=== PATIENT | male | born 1935 | race Caucasian/White ===

== ENCOUNTER 2018-01-21 14:08 | Inpatient (IN) ==
--- NOTE | 2018-01-21 14:18 | Emergency Department Note ---
ED Disposition Clinical Impression: HCAP (healthcare-associated pneumonia) Disposition: Admitted As Inpatient Condition on Discharge: Fair - Critical Care Critical Care Time: No Attestation: On , the high probability of a clinically significant, sudden or life threatening deterioration of the following system(s) required my full and direct attention, intervention and personal management. The time I documented below is in addition to time spent performing reported procedures but includes the following listed in this critical care notation. Medical Decision Making - Silas Inquiry Pt receiving controlled substance: No Vital Signs: 01/21/18 14:08 01/21/18 14:31 01/21/18 14:47 Temperature 98.4 F Temperature Source Temporal Artery Scan Pulse Rate 63 Pulse Rate [Left Radial] 62 61 Respiratory Rate 22 22 Blood Pressure 145/84 H Blood Pressure [Left Arm] 148/71 H 148/60 H Blood Pressure Mean [Left Arm] 96 89 Blood Pressure Source Automatic Cuff Blood Pressure Source [Left Arm] Automatic Cuff Automatic Cuff Blood Pressure Position Sitting Blood Pressure Position [Left Arm] Supine Sitting 02 Sat by Pulse Oximetry 99 94 L Oxygen Delivery Method Non-Rebreather Non-Rebreather Trach Collar/ Tube Oxygen Flow Rate (LPM) 15 15 01/21/18 15:05 01/21/18 15:29 01/21/18 15:30 Temperature 99.1 F Temperature Source Rectal Pulse Rate Pulse Rate [Left Radial] 63 61 63 Respiratory Rate Blood Pressure Blood Pressure [Left Arm] 132/89 138/60 123/62 Blood Pressure Mean [Left Arm] 103 86 82 Blood Pressure Source Blood Pressure Source [Left Arm] Automatic Cuff Automatic Cuff Automatic Cuff Blood Pressure Position Blood Pressure Position [Left Arm] Supine Supine 02 Sat by Pulse Oximetry 99 95 98 Oxygen Delivery Method Room Air Trach Mask Trach Collar/ Tube Trach Mask Oxygen Flow Rate (LPM) 60 60 01/21/18 16:07 01/21/18 16:36 01/21/18 16:50 Temperature 98.5 F Temperature Source Axillary Pulse Rate Pulse Rate [Left Radial] 68 73 84 Respiratory Rate 20 21 Blood Pressure Blood Pressure [Left Arm] 130/73 137/66 123/81 Blood Pressure Mean [Left Arm] 92 89 95 Blood Pressure Source Blood Pressure Source [Left Arm] Automatic Cuff Automatic Cuff Automatic Cuff Blood Pressure Position Blood Pressure Position [Left Arm] Supine Supine Sitting 02 Sat by Pulse Oximetry 96 98 100 Oxygen Delivery Method Trach Mask Trach Collar/ Tube Trach Mask Oxygen Flow Rate (LPM) 60 60 01/21/18 17:00 01/21/18 17:02 Temperature 99.1 F Temperature Source Rectal Pulse Rate 82 Pulse Rate [Left Radial] Respiratory Rate 20 Blood Pressure 134/61 Blood Pressure [Left Arm] Blood Pressure Mean [Left Arm] Blood Pressure Source Blood Pressure Source [Left Arm] Blood Pressure Position Blood Pressure Position [Left Arm] 02 Sat by Pulse Oximetry Oxygen Delivery Method Trach Collar/ Tube Trach Mask Oxygen Flow Rate (LPM) 8 60 - Lab Data Lab Results 01/21/18 14:29: Specimen Source Left radial, O2 % 100% nrb, ABG pH 7.43, ABG pCO2 42.2, ABG pO2 156.9 H, ABG HCO3 27.4 H, ABG Total CO2 28.7 H, ABG O2 Saturation 99, ABG Base Excess 3.1 H, [place] Test Patient unable 01/21/18 14:30: WBC 14.2 H, RBC 2.66 L, Hgb 8.0 L, Hct 25.8 L, MCV 96.8 H, MCH 30.1, MCHC 31.1 L, RDW 20.4 H, Plt Count 359, MPV 8.7, Neut % (Auto) 86.6 H, Lymph % (Auto) 6.8 L, [place] % (Auto) 5.0, Eos % (Auto) 1.3, Baso % (Auto) 0.3, Neut # (Auto) 12.3 H, Lymph # (Auto) 1.0, [place] # (Auto) 0.7, Eos # (Auto) 0.2, Baso # (Auto) 0.0, Total Counted 100, Neutrophils % (Manual) 86 H, Lymphocytes % (Manual) 9 L, Monocytes % (Manual) 3, Eosinophils % (Manual) 1, Basophils % (Manual) 1.0, Platelet Estimate Normal, Anisocytosis 2+ 01/21/18 14:30: Sodium 138, Potassium 4.8, Chloride 103, Carbon Dioxide 31, Anion Gap 8.8, BUN 45 H, Creatinine 1.67 H, Estimated Creat Clear 34, Estimated GFR 39 L, Est GFR ( Amer) 48 L, Glucose 134 H, Calcium 7.9 L, Total B ilirubin 0.2, AST 26, ALT 17, Alkaline Phosphatase 98, Troponin I < 0.02, Total Protein 6.4, Albumin 1.5 L, Globulin 4.9 H, Albumin/Globulin Ratio 0.3 L 01/21/18 14:30: Lactate 0.9 01/21/18 14:30: B-Natriuretic Peptide 1040 H Result diagrams: 01/21/18 14:30 01/21/18 14:30 Orders (Tests/Meds): ED MEDICATIONS Generic Name Dose Route Start Last Admin Trade Name Gaby PRN Reason Stop Dose Admin Acetaminophen 650 mg 01/22/18 09:00 Acetaminophen 325mg Tab PO 02/21/18 08:59 DAILY [facility] Amlodipine Besylate 10 mg 01/22/18 09:00 Norvasc 10mg Tablet PO 02/21/18 08:59 DAILY [facility] Docusate Sodium ml 01/22/18 09:00 Docusate Sod Liquid 100mg/10ml Udc PO 02/21/18 08:59 DAILY [facility] Folic Acid 1 mg 01/22/18 09:00 Folic Acid 1mg Tablet PO 02/21/18 08:59 DAILY [facility] Furosemide 20 mg 01/21/18 21:00 Lasix 20mg Tablet PO 02/20/18 20:59 BID [facility] Levofloxacin/Dextrose 750 mg in 150 mls @ 100 mls/hr 01/22/18 15:15 Levofloxacin 750mg/150ml Premix IV 02/04/18 15:14 Q24H [facility] Protocol Vancomycin HCl 1,500 mg/ 250 mls @ 125 mls/hr 01/21/18 17:09 01/21/18 17:45 Sodium Chloride IV 01/21/18 17:14 125 mls/hr ONCE ONE Administration Cefepime HCl 2 gm/ Sodium 100 mls @ 200 mls/hr 01/21/18 17:09 01/21/18 17:20 Chloride IV 02/04/18 17:08 Not Given Q12H [facility] Protocol Metoprolol Tartrate 50 mg 01/21/18 21:00 Lopressor 50mg Tablet PO 02/20/18 20:59 BID [facility] Non-Formulary Medication 1 each 01/22/18 09:00 Argin/Glut/Cahmb/Collag/Mv-Min [Son Packet] PO 02/21/18 08:59 DAILY [facility] Non-Formulary Medication 1 each 01/22/18 09:00 L.Acidoph,Paracasei, B.Lactis [Probiotic] PO 02/21/18 08:59 DAILY [facility] Non-Formulary Medication 3 mg 01/22/18 09:00 Melatonin [Melatin] PO 02/21/18 08:59 DAILY [facility] Non-Formulary Medication 15 mg 01/22/18 09:00 Multivit-Minerals/Ferrous Fum [Multivitamin Liquid] PO 02/21/18 08:59 DAILY [facility] Pantoprazole Sodium 40 mg 01/21/18 21:00 Protonix 40mg Tablet PO 02/20/18 20:59 BID [facility] Sodium Chloride 3 ml 01/21/18 17:09 Sodium Chloride 3% 15ml Neb IH 02/20/18 14:38 ONCE PRN INDUCE SPUTUM COLLECTION Discontinued Medications Generic Name Dose Route Start Last Admin Trade Name Freq PRN Reason Stop Dose Admin Carvedilol 12.5 mg 01/21/18 21:00 Coreg 12.5mg Tablet PO 02/20/18 20:59 BID [facility] Finasteride 5 mg 01/22/18 09:00 Proscar 5mg Tablet PO 02/21/18 08:59 DAILY [facility] Guaifenesin 600 mg 01/21/18 21:00 Mucinex 600mg Tablet PO 02/20/18 20:59 BID [facility] Cefepime HCl 2 gm/ Sodium 100 mls @ 200 mls/hr 01/21/18 15:07 01/21/18 15:18 Chloride IV 01/21/18 15:08 200 mls/hr ONCE ONE Administration Protocol Levofloxacin/Dextrose 750 mg in 150 mls @ 100 mls/hr 01/21/18 15:15 01/21/18 16:00 Levofloxacin 750mg/150ml Premix IV 02/04/18 15:14 100 mls/hr Q24H [facility] Administration Protocol Vancomycin HCl 1,500 mg/ 250 mls @ 125 mls/hr 01/21/18 15:15 01/21/18 18:21 Sodium Chloride IV 01/21/18 17:14 Not Given ONCE ONE Lisinopril 10 mg 01/22/18 09:00 Zestril 10mg Tablet PO 02/21/18 08:59 DAILY [facility] Miscellaneous 1 each 01/21/18 15:07 01/21/18 15:23 Vancomycin Consult Request NOTAPPLIC 01/21/18 15:08 1 each [facility] Administration Non-Formulary Medication 7.5 mg 01/22/18 09:00 Potassium [Potassium] PO 02/21/18 08:59 DAILY [facility] Sodium Chloride 3 ml 01/21/18 14:39 Sodium Chloride 3% 15ml Neb IH 02/20/18 14:38 ONCE PRN INDUCE SPUTUM COLLECTION ORDERS Category Date Time Status Nutrition Consult [CONS] Routine Cons 01/21/18 17:09 Active Blood Culture Stat Micro 01/21/18 14:27 Received Sputum Culture & Gram Stain Stat Micro 01/21/18 15:00 Ordered - Radiology Data #1 Image(s): Chest Image Reviewed: Yes I discussed the image results w/the radiologist Bilateral pneumonia, small right pleural effusion - ECG Data Tracing #1 EKG interpreted by Augusto Lisa MD: Rhythm: Atrial fibrillation Rate: 87 [place]: normal Ectopy: none Conduction: normal ST Segment Changes: none T Wave Changes: none Q Waves: none No evidence of acute ischemia or injury Baseline artifact present, but I consider the EKG adequate for accurate inter pretation. - Physician Consults Physician Consulted: [facility] Time: 15:57 Reason -: Transfer to another facilty Comment/Response: [facility] is on diversion, unable to accept patient for transfer. Discussed with family. They would prefer for him to be admitted here rather than transfer to a different facility in [place]. Additional Consult: Megan Time: 16:07 Reason -: Admission Comment/Response: Agrees to admit the patient to the hospital. We discussed the patient's clinical information, including history, exam, laboratory and radiology results and ED course. Per hospital procedure, I will write temporary bridge inpatient orders on the patient. Specific orders requested by the admitting physician: Continue current antibiotics Medical Decision Narrative: 1505: Discussed x-ray findings with daughters. They would prefer for him to be transferred and admitted to [facility]. General Adult HPI - General Stated complaint: Fluid in lungs Time Seen by Provider: 01/21/18 14:20 - History of Present Illness HPI narrative: History obtained from his 2 daughters, who are his caretakers at home. He is brought in by ambulance with a chief complaint of fluid in and around his lungs. Daughter states that for the past several days he has had a hoarse voice followed by some yellowish drainage down the back of his throat and a cough. He was started on Zithromax yesterday. He has a visiting physician. He had a chest x-ray done today which showed fluid in and around his lung. No fever at home. No vomiting. He chronically has diarrhea due to tube feedings. No recent change. Swelling in his legs is actually decreased compared to his typical. He always has swelling, right lower extremity greater than left and hyperpigmentation of his right leg consistent with venous stasis. He had been using oxygen via tracheostomy at night since discharge from rehab, but now is using it all day long, 4 L for the past few days because of his change in respiratory status. He has significant recent past history. He was admitted to [facility] for urinary tract infection and it sounds as if he suffered several respiratory arrests or respiratory failure episodes requiring 3 different patients. He eventually had a tracheostomy and a gastrostomy tube. He was sent to [facility] for rehabilitation for a month. He has been home for 2 months. Daughters care for him. He has subsequently been readmitted to [facility], transferred from this emergency department, for a gastrointestinal bleed with severe anemia. - Related Data Home Medications Medication Instructions Recorded Confirmed Acetaminophen [Tylenol] 650 mg PO DAILY 12/22/17 01/21/18 Amlodipine Besylate [Amlodipine 10 mg PO DAILY 12/22/17 01/21/18 10mg Tab] Argin/Glut/Cahmb/Collag/Mv-Min 1 each PO DAILY 12/22/17 01/21/18 [Son Packet] Docusate Sodium [Docusate Sod 5 mg PO DAILY 12/22/17 01/21/18 Liquid 100mg/10mL udc] Folic Acid [Folic Acid 1mg tablet] 1 mg PO DAILY 12/22/17 01/21/18 Furosemide [Furosemide 20mg Tab] 20 mg PO BID 12/22/17 01/21/18 L.acidoph,Paracasei, B.lactis 1 each PO DAILY 12/22/17 01/21/18 [Probiotic] Melatonin [Melatin] 3 mg PO DAILY 12/22/17 01/21/18 Multivit-Minerals/Ferrous Fum 15 mg PO DAILY 12/22/17 01/21/18 [Multivitamin Liquid] Metoprolol Tartrate 50 mg PO BID 01/21/18 01/21/18 Omeprazole [Omeprazole 40mg 40 mg PO BID 01/21/18 01/21/18 Capsule] Allergies Allergy/AdvReac Type Severity Reaction Status Date / Time Opioids - Morphine Analogues Allergy Intermediate Verified 12/22/17 10:08 lorazepam [From Ativan] Allergy Rash Verified 01/21/18 17:56 [facility] History I have reviewed the patient's past medical history: Yes Medical History: Reports:: Cancer (kidney) Denies:: Diabetes Mellitus Type 1, Diabetes Mellitus Type 2, Internal Pacemaker, MRSA Other Surgeries: No: Pacemaker Amputation: No - Social History Alcohol Intake: never ROS Obtained: Yes unobtainable due to mental status Physical Exam - General General appearance: alert (Eyes open. Attempts to answer some questions. Indicates he has no pain. Otherwise no meaningful responses.) - Head Head exam: atraumatic, normocephalic - Eye Eye exam: Present: normal appearance - ENT ENT exam: Present: other (Edentulous) - Neck Neck exam: Present: other (Tracheostomy) - Chest Chest inspection: Present: normal inspection, symmetric chest wall rise - Respiratory Respiratory exam: Present: other (Bilateral crackles). Absent: respiratory distress - Cardiovascular Cardiovascular exam: Present: regular rate, irregular rhythm - Abdominal Exam Abdominal exam: Present: soft, other (G tube). Absent: distention, tenderness - Extremities Exam Extremities exam: Present: pedal edema (3+ pitting edema of lower legs, ankles, feet. Right worse than left. Venous stasis changes of right lower leg.) - Neurological Exam Neurological exam: Present: alert - Skin Skin exam: Present: warm, dry
[2018-01-21 14:41] LABS: Basophils % 0.3 % (0.1-2.0); Eosinophils # 0.2 K/mm3 (0.0-0.4); Eosinophils % 1.3 % (0.1-12.0); Hematocrit 25.8 % (42.0-52.0); Lymphocytes % 6.8 K/mm3 (10-50); Mean Corpuscular HGB Conc 31.1 g/dL (31.8-35.4); Mean Corpuscular Hemoglobin 30.1 pg (27.0-31.2); Mean Corpuscular Volume 96.8 fl (80-94); Mean Platelet Volume 8.7 fl (7.4-10.4); Monocytes # 0.7 K/mm3 (0.1-1.0); Neutrophils # 12.3 K/mm3 (1.8-7.8); Neutrophils % 86.6 % (37.0-80.0); Platelet Count 359 K/mm3 (142-424); Red Blood Count 2.66 M/mm3 (4.60-6.20); Red Cell Distribution Width 20.4 % (11.5-17.5); White Blood Count 14.2 K/mm3 (4.8-10.8)
[2018-01-21 14:49] LABS: ABG Base Excess 3.1 mmol/L (-2.4-2.3); ABG HCO3 27.4 mmhg (22.0-26.0); ABG Oxygen Saturation 99 % (90-100); ABG PCO2 42.2 mmhg (35.0-45.0); ABG PH 7.43 mmol/L (7.35-7.45); ABG PO2 156.9 mmhg (80-100); ABG TCO2 28.7 mmhg (23-27)
[2018-01-21 15:05] LABS: Alanine Aminotransferase 17 U/L (12-78); Albumin Level 1.5 gm/dL (3.4-5.0); Albumin/Globulin Ratio 0.3 (1.1-1.8); Alkaline Phosphatase 98 U/L (46-116); Anion Gap 8.8 mEq/L (5-15); Aspartate Amino Transferase 26 U/L (15-37); Bilirubin,Total 0.2 mg/dL (0.2-1.0); Blood Urea Nitrogen 45 mg/dL (7-18); Calcium 7.9 mg/dL (8.5-10.1); Carbon Dioxide 31 mmol/L (21.0-32.0); Chloride 103 mmol/L (98-107); Globulin 4.9 gm/dl (1.3-3.2); Glucose 134 mg/dL (74-106); Potassium 4.8 mmoL/L (3.5-5.1); Sodium 138 mmol/L (136-145); Total Protein,Serum 6.4 gm/dL (6.4-8.2)
[2018-01-21 15:25] LABS: Anisocytosis 2+; Eosinophils % 1 % (0-3); Lymphocytes % 9 % (10-50); Monocytes % 3 % (2-9); Neutrophils % 86 % (42-76); Total Cells Counted 100
[2018-01-21 16:17] LABS: Allen's Test Patient Unable; Oxygen 100% NRB %
--- NOTE | 2018-01-22 09:29 | History & Physical Report ---
*Admission Date: 01/21/18 *Chief complaint: Fluid in the lungs *History of present illness: History obtained from his 2 daughters, who are his caretakers at home. He is brought in by ambulance with a chief complaint of fluid in and around his lungs. Daughter states that for the past several days he has had a hoarse voice followed by some yellowish drainage down the back of his throat and a cough. He was started on Zithromax yesterday. He has a visiting physician. He had a chest x-ray done today which showed fluid in and around his lung. No fever at home. No vomiting. He chronically has diarrhea due to tube feedings. No recent change. Swelling in his legs is actually decreased compared to his typical. He always has swelling, right lower extremity greater than left and hyperpigmentation of his right leg consistent with venous stasis. He had been using oxygen via tracheostomy at night since discharge from rehab, but now is using it all day long, 4 L for the past few days because of his change in respiratory status. He has significant recent past history. He was admitted to [facility] for urinary tract infection and it sounds as if he suffered several respiratory arrests or respiratory failure episodes requiring 3 different patients. He eventually had a tracheostomy and a gastrostomy tube. He was sent to [facility] for rehabilitation for a month. He has been home for 2 months. Daughters care for him. He has subsequently been readmitted to [facility], transferred from this emergency department, for a gastrointestinal bleed with severe anemia. [facility] History I have reviewed the patient's past medical history: Yes Medical History: Reports:: Cancer (kidney) Denies:: Diabetes Mellitus Type 1, Diabetes Mellitus Type 2, Internal Pacemaker, MRSA Other Surgeries: No: Pacemaker Amputation: No Fractures: No - *Social History Educational Level: Completed Grade School Smoking Status: Never smoker Alcohol Intake: never Occupational Status: retired Housing: house Household Members: spouse - Psychiatric History Expresses thoughts of harming self/others: None Suicide Plan Description: No Plan Review of Systems - Review of Systems Review of systems:: unable to obtain Meds Home Medications Medication Instructions Recorded Confirmed Type Acetaminophen [Tylenol] 650 mg PO DAILY 12/22/17 01/21/18 History Amlodipine Besylate [Amlodipine 10 mg PO DAILY 12/22/17 01/21/18 History 10mg Tab] Argin/Glut/Cahmb/Collag/Mv-Min 1 each PO DAILY 12/22/17 01/21/18 History [Son Packet] Docusate Sodium [Docusate Sod 5 mg PO DAILY 12/22/17 01/21/18 History Liquid 100mg/10mL udc] Folic Acid [Folic Acid 1mg tablet] 1 mg PO DAILY 12/22/17 01/21/18 History Furosemide [Furosemide 20mg Tab] 20 mg PO BID 12/22/17 01/21/18 History L.acidoph,Paracasei, B.lactis 1 each PO DAILY 12/22/17 01/21/18 History [Probiotic] Melatonin [Melatin] 3 mg PO DAILY 12/22/17 01/21/18 History Multivit-Minerals/Ferrous Fum 15 mg PO DAILY 12/22/17 01/21/18 History [Multivitamin Liquid] Metoprolol Tartrate 50 mg PO BID 01/21/18 01/21/18 History Omeprazole [Omeprazole 40mg 40 mg PO BID 01/21/18 01/21/18 History Capsule] Allergies Allergy/AdvReac Type Severity Reaction Status Date / Time Opioids - Morphine Analogues Allergy Intermediate Verified 12/22/17 10:08 lorazepam [From Ativan] Allergy Rash Verified 01/21/18 17:56 Exam Vital signs and Labs for Last 24 Hours: Temp Pulse Resp BP Pulse Ox 98.4 F 93 H 16 170/71 H 95 01/22/18 07:53 01/22/18 07:53 01/22/18 07:53 01/22/18 07:53 01/22/18 07:53 Laboratory Results - last 24 hr 01/21/18 14:29: Specimen Source Left radial, O2 % 100% nrb, ABG pH 7.43, ABG pCO2 42.2, ABG pO2 156.9 H, ABG HCO3 27.4 H, ABG Total CO2 28.7 H, ABG O2 Saturation 99, ABG Base Excess 3.1 H, [place] Test Patient unable 01/21/18 14:30: WBC 14.2 H, RBC 2.66 L, Hgb 8.0 L, Hct 25.8 L, MCV 96.8 H, MCH 30.1, MCHC 31.1 L, RDW 20.4 H, Plt Count 359, MPV 8.7, Neut % (Auto) 86.6 H, Ly mph % (Auto) 6.8 L, [place] % (Auto) 5.0, Eos % (Auto) 1.3, Baso % (Auto) 0.3, Neut # (Auto) 12.3 H, Lymph # (Auto) 1.0, [place] # (Auto) 0.7, Eos # (Auto) 0.2, Baso # (Auto) 0.0, Total Counted 100, Neutrophils % (Manual) 86 H, Lymphocytes % (Manual) 9 L, Monocytes % (Manual) 3, Eosinophils % (Manual) 1, Basophils % ( Manual) 1.0, Platelet Estimate Normal, Anisocytosis 2+ 01/21/18 14:30: Sodium 138, Potassium 4.8, Chloride 103, Carbon Dioxide 31, Anion Gap 8.8, BUN 45 H, Creatinine 1.67 H, Estimated Creat Clear 34, Estimated GFR 39 L, Est GFR ( Amer) 48 L, Glucose 134 H, Calcium 7.9 L, Total Bilirubin 0.2, AST 26, ALT 17, Alkaline Phosphatase 98, Troponin I < 0.02, Total Protein 6.4, Albumin 1.5 L, Globulin 4.9 H, Albumin/Globulin Ratio 0.3 L 01/21/18 14:30: Lactate 0.9 01/21/18 14:30: B-Natriuretic Peptide 1040 H I & O for Last 24 hours: Intake & Output 01/19/18 01/20/18 01/21/18 01/22/18 11:59 11:59 11:59 11:59 Intake Total 1089 / 1089 Output Total 100 / 100 Balance 989 / 989 Weight 161 lb 2 oz - *Routine HEENT Exam Head: Present: normocephalic Eye: Present: EOMI ENT: Present: mucous membranes moist - *Routine Respiratory Exam Present: patient mechanically ventilated (on tracheostomy), decreased breath sounds, crackles - *Routine Cardiovascular Exam Present: RRR - *Routine Abdominal Exam Present: soft, distended - *Routine Exam Comments: yellow sedimented urine - *Routine Extremities Exam Present: edema (2+ bilaterally) - *Routine Skin Exam Present: intact - *Routine Neurological Exam Absent: alert, oriented X3, normal speech GCS is 8-9 Assessment and Plan (1) Sepsis Start date: 01/21/18 Current visit: Yes Status: Acute Qualifiers: Sepsis type: sepsis due to unspecified organism Qualified Code(s): A41.9 - Sepsis, unspecified organism Category: Medical Code(s): A41.9 - Sepsis, unspecified organism Given patient's heart failure with elevated BNP, judicious IV fluids was given at 75 cc an hour overnight. This morning patient was found to be having 2+ edema bilaterally. So fluids were stopped. He was given 60 mg of IV Lasix as h e was having crackles in his lungs during the exam. He was started on broad spectrum antibiotics, including Vancomycin, Levaquin and cefepime. Will trend CBC. (2) No CPR or defibrillation, use all other resuscitative measures Current visit: No Status: Acute Category: Medical Code(s): Z78.9 - Other specified health status Patient's code status is AND as of now. Discussed with family about the severity of the patient's prognosis. (3) Scrotal edema Current visit: No Status: Acute Category: Medical Code(s): N50.89 - Other specified disorders of the male genital organs We will get ultrasound of the scrotum (4) Status post tracheostomy Current visit: No Status: Acute Category: Surgical Code(s): Z93.0 - Tracheostomy status Will trend ABGs (5) Renal insufficiency Current visit: No Status: Acute Category: Medical Code(s): N28.9 - Disorder of kidney and ureter, unspecified Will trend CMP (6) Chronic atrial fibrillation Current visit: No Status: Acute Category: Medical Code(s): I48.2 - Chronic atrial fibrillation Continue home medication (7) On tube feeding diet Current visit: Yes Status: Acute Category: Medical Code(s): Z78.9 - Other specified health status We will await nutrition consult to start continuous tube feeds (8) Bilateral pneumonia Current visit: Yes Status: Acute Qualifiers: Pneumonia type: due to unspecified organism Lung location: lower lobe of lung Qualified Code(s): J18.1 - Lobar pneumonia, unspecified organism Category: Medical Code(s): J18.9 - Pneumonia, unspecified organism We will continue vancomycin, Levaquin and cefepime at this time (9) 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
[2018-01-22 09:54] LABS: ABG Base Excess 4.6 mmol/L (-2.4-2.3); ABG HCO3 28.6 mmhg (22.0-26.0); ABG Oxygen Saturation 97 % (90-100); ABG PCO2 42.2 mmhg (35.0-45.0); ABG PH 7.45 mmol/L (7.35-7.45); ABG PO2 83.9 mmhg (80-100); ABG TCO2 29.9 mmhg (23-27)
[2018-01-22 09:55] LABS: Oxygen 40 %
--- NOTE | 2018-01-22 11:06 | Pharmacy Consult Notes ---
[facility] Pharmacy VTE Monitoring - Patient Demographics Admission date: 01/21/18 Report Date: 01/22/18 Time: 11:06 Allergies/Adverse Reactions: Patient Allergies Opioids - Morphine Analogues Allergy (Intermediate, Verified 12/22/17 10:08) lorazepam [From Ativan] Allergy (Verified 01/21/18 17:56) Rash Height: 1.8 m Weight: 73.085 kg Patient Problems: Current Active Problems HCAP (healthcare-associated pneumonia) (Acute) Sepsis (Acute) On tube feeding diet (Acute) Bilateral pneumonia (Acute) NYHA class 4 heart failure with reduced ejection fraction (Acute) - VTE Risk Labs: VTE Related Lab Results Hgb 8.0 g/dL (14.1-18.0) L 01/21/18 14:30 Hct 25.8 % (42.0-52.0) L 01/21/18 14:30 Plt Count 359 K/mm3 (142-424) 01/21/18 14:30 BUN 45 mg/dL (7-18) H 01/21/18 14:30 Creatinine 1.67 mg/dL (0.70-1.30) H 01/21/18 14:30 Estimated Creat Clear 34 mL/min (0-300) 01/21/18 14:30 Was VTE Risk Assessment Performed: Yes VTE Score: 5 VTE Risk Level: Low Risk - Prophylaxis VTE Prophylaxis Ordered?: Yes Types of VTE Prophylaxis: TEDS Knee High Location of Applied Device: Bilateral Lower Extremeties
[2018-01-22 11:08] LABS: Basophils % 0.3 % (0.1-2.0); Eosinophils # 0.2 K/mm3 (0.0-0.4); Eosinophils % 2.1 % (0.1-12.0); Hematocrit 25.4 % (42.0-52.0); Mean Corpuscular HGB Conc 30.1 g/dL (31.8-35.4); Mean Corpuscular Hemoglobin 29.1 pg (27.0-31.2); Mean Corpuscular Volume 96.5 fl (80-94); Mean Platelet Volume 8.2 fl (7.4-10.4); Monocytes # 0.5 K/mm3 (0.1-1.0); Neutrophils # 7.4 K/mm3 (1.8-7.8); Neutrophils % 81.5 % (37.0-80.0); Platelet Count 295 K/mm3 (142-424); Red Blood Count 2.63 M/mm3 (4.60-6.20); Red Cell Distribution Width 20.2 % (11.5-17.5); White Blood Count 9.1 K/mm3 (4.8-10.8)
[2018-01-22 11:14] LABS: Albumin Level 1.4 gm/dL (3.4-5.0); Albumin/Globulin Ratio 0.3 (1.1-1.8); Anion Gap 11.4 mEq/L (5-15); Bilirubin,Total 0.4 mg/dL (0.2-1.0); Calcium 7.8 mg/dL (8.5-10.1); Globulin 4.5 gm/dl (1.3-3.2); Potassium 4.4 mmoL/L (3.5-5.1); Total Protein,Serum 5.9 gm/dL (6.4-8.2)
[2018-01-22 11:19] LABS: Hemoglobin 7.6 g/dL (14.1-18.0)
[2018-01-22 11:21] LABS: Microscopic, Urine URINE MICROSCOPIC (MICROSCOPIC)
[2018-01-22 11:22] LABS: Appearance,Urine SL CLOUDY (Clear); Bilirubin,Urine Negative (Negative); Blood, Urine TRACE-L (Negative); Color,Urine YELLOW (Yellow); Glucose,Urine (UA) Negative (Negative); Ketones,Urine Negative (Negative); Leukocyte Esterase,Urine 3+ (Negative); PH,Urine 6.5 (5.0-8.5); Protein,Urine 1+ (Negative); Urobilinogen,Urine 0.2 EU/dl (0.2)
[2018-01-22 11:31] LABS: Bacteria,Urine 4+ /lpf; Squamous Epithelial Cell,Urine Occasional #/hpf (0-5); WBC,Urine TNTC #/hpf (0-3); Yeast,Urine 2+ /lpf
--- NOTE | 2018-01-22 12:22 | Pharmacy Consult Notes ---
- Pharmacy Consult Date: 01/22/18 Time: 12:21 Referring provider: DR. GARZON Reason for Consult:: VANCOMYCIN DOSING Allergies and ADEs:: Allergies Allergy/AdvReac Type Severity Reaction Status Date / Time Opioids - Morphine Analogues Allergy Intermediate Verified 12/22/17 10:08 lorazepam [From Ativan] Allergy Rash Verified 01/21/18 17:56 Home Medications:: Home Medications Medication Instructions Recorded Confirmed Type Acetaminophen [Tylenol] 650 mg PO DAILY 12/22/17 01/21/18 History Amlodipine Besylate [Amlodipine 10 mg PO DAILY 12/22/17 01/21/18 History 10mg Tab] Argin/Glut/Cahmb/Collag/Mv-Min 1 each PO DAILY 12/22/17 01/21/18 History [Son Packet] Docusate Sodium [Docusate Sod 5 mg PO DAILY 12/22/17 01/21/18 History Liquid 100mg/10mL udc] Folic Acid [Folic Acid 1mg tablet] 1 mg PO DAILY 12/22/17 01/21/18 History Furosemide [Furosemide 20mg Tab] 20 mg PO BID 12/22/17 01/21/18 History L.acidoph,Paracasei, B.lactis 1 each PO DAILY 12/22/17 01/21/18 History [Probiotic] Melatonin [Melatin] 3 mg PO DAILY 12/22/17 01/21/18 History Multivit-Minerals/Ferrous Fum 15 mg PO DAILY 12/22/17 01/21/18 History [Multivitamin Liquid] Metoprolol Tartrate 50 mg PO BID 01/21/18 01/21/18 History Omeprazole [Omeprazole 40mg 40 mg PO BID 01/21/18 01/21/18 History Capsule] Height: 1.8 m Weight: 73.085 kg Laboratory Results:: Laboratory Results - last 24 hr 01/21/18 14:29: Specimen Source Left radial, O2 % 100% nrb, ABG pH 7.43, ABG pCO2 42.2, ABG pO2 156.9 H, ABG HCO3 27.4 H, ABG Total CO2 28.7 H, ABG O2 Saturation 99, ABG Base Excess 3.1 H, [place] Test Patient unable 01/21/18 14:30: WBC 14.2 H, RBC 2.66 L, Hgb 8.0 L, Hct 25.8 L, MCV 96.8 H, MCH 30.1, MCHC 31.1 L, RDW 20.4 H, Plt Count 359, MPV 8.7, Neut % (Auto) 86.6 H, Lymph % (Auto) 6.8 L, [place] % (Auto) 5.0, Eos % (Auto) 1.3, Baso % (Auto) 0.3, Neut # (Auto) 12.3 H, Lymph # (Auto) 1.0, [place] # (Auto) 0.7, Eos # (Auto) 0.2, Baso # (Auto) 0.0, Total Counted 100, Neutrophils % (Manual) 86 H, Lymphocytes % (Manual) 9 L, Monocytes % (Manual) 3, Eosinophils % (Manual) 1, Basophils % (Manual) 1.0, Platelet Estimate Normal, Anisocytosis 2+ 01/21/18 14:30: Sodium 138, Potassium 4.8, Chloride 103, Carbon Dioxide 31, Anion Gap 8.8, BUN 45 H, Creatinine 1.67 H, Estimated Creat Clear 34, Estimated GFR 39 L, Est GFR ( Amer) 48 L, Glucose 134 H, Calcium 7.9 L, Total Bilirubin 0.2, AST 26, ALT 17, Alkaline Phosphatase 98, Troponin I < 0.02, Total Protein 6.4, Albumin 1.5 L, Globulin 4.9 H, Albumin/Globulin Ratio 0.3 L 01/21/18 14:30: Lactate 0.9 01/21/18 14:30: B-Natriuretic Peptide 1040 H 01/22/18 09:43: WBC 9.1 D, RBC 2.63 L, Hgb 7.6 L*, Hct 25.4 L, MCV 96.5 H, MCH 29.1, MCHC 30.1 L, RDW 20.2 H, Plt Count 295, MPV 8.2, Neut % (Auto) 81.5 H, Lymph % (Auto) 11.0, [place] % (Auto) 5.0, Eos % (Auto) 2.1, Baso % (Auto) 0.3, Neut # (Auto) 7.4, Lymph # (Auto) 1.0, [place] # (Auto) 0.5, Eos # (Auto) 0.2, Baso # (Auto) 0.0 01/22/18 09:43: Sodium 140, Potassium 4.4, Chloride 104, Carbon Dioxide 29, Anion Gap 11.4, BUN 45 H, Creatinine 1.75 H, Estimated Creat Clear 32, Estimated GFR 37 L, Est GFR ( Amer) 45 L, Glucose 79 D, Calcium 7.8 L, Magnesium 1.9, Total Bilirubin 0.4, AST 25, ALT 16, Alkaline Phosphatase 87, Total Protein 5.9 L, Albumin 1.4 L, Globulin 4.5 H, Albumin/Globulin Ratio 0.3 L 01/22/18 09:52: Specimen Source Lt radial, O2 % 40, ABG pH 7.45, ABG pCO2 42.2, ABG pO2 83.9, ABG HCO3 28.6 H, ABG Total CO2 29.9 H, ABG O2 Saturation 97, ABG Base Excess 4.6 H, [place] Test N/a 01/22/18 11:16: Urine Color Yellow, Urine Appearance Sl cloudy, Urine pH 6.5, Ur Specific [place] 1.010, Urine Protein 1+, Urine Glucose (UA) Negative, Urine Ketones Negative, Urine Blood Trace-l, Urine Nitrate Negative, Urine Bilirubin Negative, Urine Urobilinogen 0.2, Ur Leukocyte Esterase 3+ A, Urine WBC Tntc, Ur Squamous Epith Cells Occasional, Urine Bacteria 4+, Urine Yeast 2+ Medical History: Reports:: Cancer (kidney) Denies:: Diabetes Mellitus Type 1, Diabetes Mellitus Type 2, Internal Pacemaker, MRSA Assessment and Plan (1) Sepsis Start date: 01/21/18 Current visit: Yes Status: Acute Qualifiers: Sepsis type: sepsis due to unspecified organism Qualified Code(s): A41.9 - Sepsis, unspecified organism Category: Medical Code(s): A41.9 - Sepsis, unspecified organism (2) No CPR or defibrillation, use all other resuscitative measures Current visit: No Status: Acute Category: Medical Code(s): Z78.9 - Other specified health status (3) Scrotal edema Current visit: No Status: Acute Category: Medical Code(s): N50.89 - Other specified disorders of the male genital organs (4) Status post tracheostomy Current visit: No Status: Acute Category: Surgical Code(s): Z93.0 - Tracheostomy status (5) Renal insufficiency Current visit: No Status: Acute Category: Medical Code(s): N28.9 - Disorder of kidney and ureter, unspecified (6) Chronic atrial fibrillation Current visit: No Status: Acute Category: Medical Code(s): I48.2 - Chronic atrial fibrillation (7) On tube feeding diet Current visit: Yes Status: Acute Category: Medical Code(s): Z78.9 - Other specified health status (8) Bilateral pneumonia Current visit: Yes Status: Acute Qualifiers: Pneumonia type: due to unspecified organism Lung location: lower lobe of lung Qualified Code(s): J18.1 - Lobar pneumonia, unspecified organism Category: Medical Code(s): J18.9 - Pneumonia, unspecified organism (9) 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 PHARMACY WILL FOLLOW DAILY AND ADJUST APPROPRIATE.
[2018-01-23 06:02] LABS: ABG Base Excess 7.2 mmol/L (-2.4-2.3); ABG HCO3 30.8 mmhg (22.0-26.0); ABG Oxygen Saturation 94 % (90-100); ABG PCO2 43.1 mmhg (35.0-45.0); ABG PH 7.47 mmol/L (7.35-7.45); ABG PO2 66.5 mmhg (80-100); ABG TCO2 32.1 mmhg (23-27)
[2018-01-23 06:05] LABS: Oxygen 40 %
[2018-01-23 06:23] LABS: Basophils % 0.4 % (0.1-2.0); Eosinophils # 0.3 K/mm3 (0.0-0.4); Eosinophils % 2.7 % (0.1-12.0); Lymphocytes % 10.1 K/mm3 (10-50); Mean Corpuscular HGB Conc 30.4 g/dL (31.8-35.4); Mean Corpuscular Hemoglobin 29.3 pg (27.0-31.2); Mean Corpuscular Volume 96.3 fl (80-94); Mean Platelet Volume 9.4 fl (7.4-10.4); Monocytes # 0.6 K/mm3 (0.1-1.0); Monocytes % 5.6 % (1.7-9.3); Neutrophils # 8.3 K/mm3 (1.8-7.8); Neutrophils % 81.2 % (37.0-80.0); Platelet Count 329 K/mm3 (142-424); Red Cell Distribution Width 19.9 % (11.5-17.5); White Blood Count 10.3 K/mm3 (4.8-10.8)
[2018-01-23 06:24] LABS: Hemoglobin 7.9 g/dL (14.1-18.0)
[2018-01-23 06:42] LABS: Albumin Level 1.4 gm/dL (3.4-5.0); Albumin/Globulin Ratio 0.3 (1.1-1.8); Anion Gap 10.3 mEq/L (5-15); Bilirubin,Total 0.3 mg/dL (0.2-1.0); Calcium 7.8 mg/dL (8.5-10.1); Globulin 4.7 gm/dl (1.3-3.2); Potassium 4.3 mmoL/L (3.5-5.1); Total Protein,Serum 6.1 gm/dL (6.4-8.2)
--- NOTE | 2018-01-23 09:59 | Progress Note ---
Internal Medicine - PN: Caesar *Date: 01/23/18 *Time: 09:56 Interval history: Patient is stable but still having a worsening lung sounds. He is also having worsening of swelling in his extremities. Exam Vital signs and Labs for Last 24 Hours: Temp Pulse Resp BP Pulse Ox 99.0 F 102 H 26 H 149/84 H 94 L 01/23/18 07:22 01/23/18 07:22 01/23/18 07:22 01/23/18 07:22 01/23/18 07:22 Laboratory Results - last 24 hr 01/22/18 09:43: WBC 9.1 D, RBC 2.63 L, Hgb 7.6 L*, Hct 25.4 L, MCV 96.5 H, MCH 29.1, MCHC 30.1 L, RDW 20.2 H, Plt Count 295, MPV 8.2, Neut % (Auto) 81.5 H, Lymph % (Auto) 11.0, [place] % (Auto) 5.0, Eos % (Auto) 2.1, Baso % (Auto) 0.3, Neut # (Auto) 7.4, Lymph # (Auto) 1.0, [place] # (Auto) 0.5, Eos # (Auto) 0.2, Baso # (Auto) 0.0 01/22/18 09:43: Sodium 140, Potassium 4.4, Chloride 104, Carbon Dioxide 29, Anion Gap 11.4, BUN 45 H, Creatinine 1.75 H, Estimated Creat Clear 32, Estimated GFR 37 L, Est GFR ( Amer) 45 L, Glucose 79 D, Calcium 7.8 L, Magnesium 1.9, Total Bilirubin 0.4, AST 25, ALT 16, Alkaline Phosphatase 87, Total Protein 5.9 L, Albumin 1.4 L, Globulin 4.5 H, Albumin/Globulin Ratio 0.3 L 01/22/18 11:16: Urine Color Yellow, Urine Appearance Sl cloudy, Urine pH 6.5, Ur Specific [place] 1.010, Urine Protein 1+, Urine Glucose (UA) Negative, Urine Ketones Negative, Urine Blood Trace-l, Urine Nitrate Negative, Urine Bilirubin Negative, Urine Urobilinogen 0.2, Ur Leukocyte Esterase 3+ A, Urine WBC Tntc, Ur Squamous Epith Cells Occasional, Urine Bacteria 4+, Urine Yeast 2+ 01/22/18 12:35: Blood Type A Positive, Antibody Screen Negative, Crossmatch (AHG) See Detail 01/22/18 12:35: Magnesium 2.0 01/23/18 06:00: Specimen Source Lt radial, O2 % 40, ABG pH 7.47 H, ABG pCO2 43.1, ABG pO2 66.5 L, ABG HCO3 30.8 H, ABG Total CO2 32.1 H, ABG O2 Saturation 94, ABG Base Excess 7.2 H, [place] Test N/a 01/23/18 06:06: WBC 10.3, RBC 2.70 L, Hgb 7.9 L*, Hct 26.0 L, MCV 96.3 H, MCH 29.3, MCHC 30.4 L, RDW 19.9 H, Plt Count 329, MPV 9.4, Neut % (Auto) 81.2 H, Lymph % (Auto) 10.1, [place] % (Auto) 5.6, Eos % (Auto) 2.7, Baso % (Auto) 0.4, Neut # (Auto) 8.3 H, Lymph # (Auto) 1.0, [place] # (Auto) 0.6, Eos # (Auto) 0.3, Baso # (Auto) 0.0 01/23/18 06:06: Sodium 141, Potassium 4.3, Chloride 106, Carbon Dioxide 29, Anion Gap 10.3, BUN 46 H, Creatinine 1.94 H, Estimated Creat Clear 29, Estimated GFR 33 L, Est GFR ( Amer) 40 L, Glucose 128 H D, Calcium 7.8 L, Total Bilirubin 0.3, AST 23, ALT 16, Alkaline Phosphatase 93, Total Protein 6.1 L, Albumin 1.4 L, Globulin 4.7 H, Albumin/Globulin Ratio 0.3 L I & O for Last 24 hours: Intake & Output 01/20/18 01/21/18 01/22/18 01/23/18 11:59 11:59 11:59 10:59 Intake Total 1089 / 1089 1687 / 1687 Output Total 100 / 100 2400 / 2400 Balance 989 / 989 -713 / -713 Weight 161 lb 1.997 oz 161 lb 1.997 oz Microbiology Reports for the Last 24 Hours: Microbiology 01/21/18 15:00 Sputum - Endotracheal Tube Aspirate Gram Stain - Final 01/21/18 15:00 Sputum - Endotracheal Tube Aspirate Sputum Culture - Preliminary Gram Positive Cocci - *Routine HEENT Exam Head: Present: normocephalic ENT: Present: mucous membranes dry - *Routine Neck Exam Comments: Tracheostomy in place - *Routine Respiratory Exam Present: patient mechanically ventilated, decreased breath sounds, rales, wheezes, diminished air movement - *Routine Cardiovascular Exam Present: RRR - *Routine Abdominal Exam Present: soft, distended - *Routine Extremities Exam Present: edema (2+ bilateral) - *Routine Skin Exam Present: dry. Absent: normal turgor - *Routine Neurological Exam Absent: alert, oriented X3 (GCS score 7) - Routine Psychiatric Exam Present: unable to assess. Absent: normal affect, cooperative Assessment and Plan (1) Sepsis Start date: 01/21/18 Current visit: Yes Status: Acute Qualifiers: Sepsis type: methicillin resistant Staphylococcus aureus Qualified Code(s): A41.02 - Sepsis due to Methicillin resistant Staphylococcus aureus Category: Medical Code(s): A41.9 - Sepsis, unspecified organism Sepsis with multiple end organ damage secondary to possible MRSA pneumonia from endotracheal tube aspirate and acute complicated cystitis -continue broad- spectrum IV antibiotics, will refrain from IV fluids secondary to his congestive heart failure and fluid retention. Will give him Lasix 40 mg IV for his peripheral edema. I had an extensive talk with his 2 daughters and his about his worsening prognosis. Have provided them the option of comfort measures at this point. Family wants to talk amongst themselves today and hopefully make a decision about how they want to proceed tomorrow. If they decide to proceed with treatment, I will recommend him to a higher level of care such as [facility] in [facility] or [facility]. I have discussed this with the family as well and are aware of this possibility. However they choose comfort measures, I could still probably provide care for them at our facility. Pros and cons of proceeding treatment w as discussed extensively with the family. Total time spent talking to the family was about 40 minutes. (2) No CPR or defibrillation, use all other resuscitative measures Current visit: No Status: Acute Category: Medical Code(s): Z78.9 - Other specified health status (3) Scrotal edema Current visit: No Status: Acute Category: Medical Code(s): N50.89 - Other specified disorders of the male genital organs Ultrasound revealed major scrotal edema with no abnormalities to the testicles at this point. (4) Status post tracheostomy Current visit: No Status: Acute Category: Surgical Code(s): Z93.0 - Tracheostomy status Positive diplococci aspirate obtained from this site. Continue IV broad- spectrum antibiotics. Will get surgery consult tomorrow to see if he needed his trach to be replaced. (5) Renal insufficiency Current visit: No Status: Acute Category: Medical Code(s): N28.9 - Disorder of kidney and ureter, unspecified Monitor for now, patient only has one kidney, refrain from giving IV fluids as he is having congestive heart failure leading to pulmonary edema. (6) Chronic atrial fibrillation Current visit: No Status: Acute Category: Medical Code(s): I48.2 - Chronic atrial fibrillation (7) On tube feeding diet Current visit: Yes Status: Acute Category: Medical Code(s): Z78.9 - Other specified health status Will defer decision to nutrition. If desired to start tube feeds, advised to keep it as low for volume as possible. (8) Bilateral pneumonia Current visit: Yes Status: Acute Qualifiers: Pneumonia type: due to methicillin-resistant Staphylococcus aureus (MRSA) Lung location: lower lobe of lung Qualified Code(s): J15.212 - Pneumonia due to Methicillin resistant Staphylococcus aureus Category: Medical Code(s): J18.9 - Pneumonia, unspecified organism Continue broad-spectrum antibiotics (9) NYHA class 4 heart failure with reduced ejection fraction Current visit: Yes Status: Acute Category: Medical Code(s): I50.20 - Unspecified systolic (congestive) heart failure Echo pending (10) Anemia Current visit: No Status: Acute Qualifiers: Anemia type: due to chronic kidney disease Chronic kidney disease stage: stage 4 (severe) Qualified Code(s): N18.4 - Chronic kidney disease, stage 4 (severe); D63.1 - Anemia in chronic kidney disease Category: Medical Code(s): D64.9 - Anemia, unspecified Status post 2 units of PRBC. Will transfuse 2 more units if needed tomorrow. (11) UTI (urinary tract infection) due to urinary indwelling Alexandre catheter Current visit: Yes Status: Chronic Qualifiers: Indwelling urinary catheter type: indwelling urethral catheter Encounter type: sequela Qualified Code(s): T83.511S - Infection and inflammatory reaction due to indwelling urethral catheter, sequela; N39.0 - Urinary tract infection, site not specified Category: Medical Code(s): T83.511A - Infection and inflammatory reaction due to indwelling urethral catheter, initial encounter; N39.0 - Urinary tract infection, site not specified Patient has a chronic Alexandre, will treat with IV broad-spectrum antibiotics until cultures come back.
[2018-01-24 06:01] LABS: ABG Base Excess 6.5 mmol/L (-2.4-2.3); ABG HCO3 30.5 mmhg (22.0-26.0); ABG Oxygen Saturation 96 % (90-100); ABG PCO2 44.9 mmhg (35.0-45.0); ABG PH 7.45 mmol/L (7.35-7.45); ABG PO2 78.6 mmhg (80-100); ABG TCO2 31.9 mmhg (23-27)
[2018-01-24 06:02] LABS: Allen's Test Patient Unable; Oxygen 40%TC %
[2018-01-24 06:46] LABS: Basophils % 0.4 % (0.1-2.0); Eosinophils # 0.3 K/mm3 (0.0-0.4); Eosinophils % 3.1 % (0.1-12.0); Lymphocytes # 0.9 K/mm3 (0.7-4.5); Lymphocytes % 9.9 K/mm3 (10-50); Mean Corpuscular HGB Conc 29.9 g/dL (31.8-35.4); Mean Corpuscular Hemoglobin 29.6 pg (27.0-31.2); Mean Platelet Volume 8.3 fl (7.4-10.4); Monocytes # 0.6 K/mm3 (0.1-1.0); Monocytes % 6.7 % (1.7-9.3); Neutrophils # 6.9 K/mm3 (1.8-7.8); Platelet Count 301 K/mm3 (142-424); Red Blood Count 2.62 M/mm3 (4.60-6.20); Red Cell Distribution Width 19.8 % (11.5-17.5); White Blood Count 8.7 K/mm3 (4.8-10.8)
[2018-01-24 07:19] LABS: Hemoglobin 7.8 g/dL (14.1-18.0)
--- NOTE | 2018-01-24 12:08 | Progress Note ---
Internal Medicine - PN: Subj *Date: 01/24/18 *Time: 08:30 Interval history: Patient is stable but still having multi-organ failure. GCS is still poor at 7 or 8. Exam Vital signs and Labs for Last 24 Hours: Temp Pulse Resp BP Pulse Ox 97.8 F 82 16 129/78 98 01/24/18 04:00 01/24/18 08:22 01/24/18 08:00 01/24/18 08:00 01/24/18 08:00 Laboratory Results - last 24 hr 01/22/18 11:16: Urine Color Yellow, Urine Appearance Sl cloudy, Urine pH 6.5, Ur Specific [place] 1.010, Urine Protein 1+, Urine Glucose (UA) Negative, Urine Ketones Negative, Urine Blood Trace-l, Urine Nitrate Negative, Urine Bilirubin Negative, Urine Urobilinogen 0.2, Ur Leukocyte Esterase 3+ A, Urine WBC Tntc, Ur Squamous Epith Cells Occasional, Urine Bacteria 4+, Urine Yeast 2+ 01/24/18 05:58: WBC 8.7, RBC 2.62 L, Hgb 7.8 L*, Hct 26.0 L, MCV 99.0 H, MCH 29.6, MCHC 29.9 L, RDW 19.8 H, Plt Count 301, MPV 8.3, Neut % (Auto) 80.0, Lymph % (Auto) 9.9 L, [place] % (Auto) 6.7, Eos % (Auto) 3.1, Baso % (Auto) 0.4, Neut # (Auto) 6.9, Lymph # (Auto) 0.9, [place] # (Auto) 0.6, Eos # (Auto) 0.3, Baso # (Auto) 0.0 01/24/18 06:00: Specimen Source Left radial, O2 % 40%tc, ABG pH 7.45, ABG pCO2 44.9, ABG pO2 78.6 L, ABG HCO3 30.5 H, ABG Total CO2 31.9 H, ABG O2 Saturation 96, ABG Base Excess 6.5 H, [place] Test Patient unable I & O for Last 24 hours: Intake & Output 01/22/18 01/23/18 01/24/18 01/25/18 12:59 11:59 11:59 11:59 Intake Total 880 / 880 Output Total 1825 / 1825 Balance -945 / -945 Weight Microbiology Reports for the Last 24 Hours: Microbiology 01/22/18 11:16 Urine,Clean Catch Urine Culture - Preliminary Gram Positive Cocci Yeast 01/21/18 15:00 Sputum - Endotracheal Tube Aspirate Gram Stain - Final 01/21/18 15:00 Sputum - Endotracheal Tube Aspirate Sputum Culture - Preliminary Staphylococcus aureus Gram Negative Rods Gram Negative Rods#2 01/21/18 14:30 Blood Blood Culture - Preliminary NO GROWTH AFTER 48 HOURS 01/21/18 14:30 Blood Blood Culture - Preliminary NO GROWTH AFTER 48 HOURS - *Routine HEENT Exam Head: Present: normocephalic Eye: Absent: EOMI ENT: Present: mucous membranes dry - *Routine Neck Exam Present: supple - *Routine Respiratory Exam Present: patient mechanically ventilated (with tracheostomy tube), decreased breath sounds, rales, distant breath sounds, diminished air movement - *Routine Cardiovascular Exam Present: RRR - *Routine Abdominal Exam Present: soft, distended - *Routine Extremities Exam Present: edema (2+ bilaterally) - *Routine Skin Exam Present: dry - *Routine Neurological Exam Absent: alert, oriented X3 (GCS of 7-8), moving all extremities, normal speech Assessment and Plan (1) Sepsis Start date: 01/21/18 Current visit: Yes Status: Acute Qualifiers: Sepsis type: methicillin resistant Staphylococcus aureus Qualified Code(s): A41.02 - Sepsis due to Methicillin resistant Staphylococcus aureus Category: Medical Code(s): A41.9 - Sepsis, unspecified organism sepsis with multi-end organ damage 2/2 s.aureus causing bilateral pna and acute complicated cystitis caused by s. aureus and yeast. Will de-escalade abx to just IV vanc at this time. (2) No CPR or defibrillation, use all other resuscitative measures Current visit: No Status: Acute Category: Medical Code(s): Z78.9 - Other specified health status Had extensive conversation with family about comfort measures. Family wants to do everything for this at this time even though they understand the poor prognosis. Then I had a conversation about going to [facility] for continued care. Case management consulted on placement. Will await placement. (3) Scrotal edema Current visit: No Status: Acute Category: Medical Code(s): N50.89 - Other specified disorders of the male genital organs will follow for now (4) Status post tracheostomy Current visit: No Status: Acute Category: Surgical Code(s): Z93.0 - Tracheostomy status acute on chronic hypoxic respiratory failure. will continue oxygen supplementation. (5) Renal insufficiency Current visit: No Status: Acute Category: Medical Code(s): N28.9 - Disorder of kidney and ureter, unspecified no IVF for now s/p bilateral peripheral edema and pulmonary edema (6) Chronic atrial fibrillation Current visit: No Status: Acute Category: Medical Code(s): I48.2 - Chronic atrial fibrillation (7) On tube feeding diet Current visit: Yes Status: Acute Category: Medical Code(s): Z78.9 - Other specified health status continue tube feeds (8) Bilateral pneumonia Current visit: Yes Status: Acute Qualifiers: Pneumonia type: due to methicillin-resistant Staphylococcus aureus (MRSA) Lung location: lower lobe of lung Qualified Code(s): J15.212 - Pneumonia due to Methicillin resistant Staphylococcus aureus Category: Medical Code(s): J18.9 - Pneumonia, unspecified organism de-escalde on abx today (9) NYHA class 4 heart failure with reduced ejection fraction Current visit: Yes Status: Acute Category: Medical Code(s): I50.20 - Unspecified systolic (congestive) heart failure echo pending (10) Anemia Current visit: No Status: Acute Qualifiers: Anemia type: due to chronic kidney disease Chronic kidney disease stage: stage 4 (severe) Qualified Code(s): N18.4 - Chronic kidney disease, stage 4 (severe); D63.1 - Anemia in chronic kidney disease Category: Medical Code(s): D64.9 - Anemia, unspecified 2 units of PRBCs with lasix 40 IV in between (11) UTI (urinary tract infection) due to urinary indwelling Alexandre catheter Current visit: Yes Status: Chronic Qualifiers: Indwelling urinary catheter type: indwelling urethral catheter Encounter type: sequela Qualified Code(s): T83.511S - Infection and inflammatory reaction due to indwelling urethral catheter, sequela; N39.0 - Urinary tract infection, site not specified Category: Medical Code(s): T83.511A - Infection and inflammatory reaction due to indwelling urethral catheter, initial encounter; N39.0 - Urinary tract infection, site not specified 2/2 yeast and s.aureus. will continue abx and start diflucan
--- NOTE | 2018-01-24 21:43 | Cardiology Report ---
PROCEDURE: 2-D M-mode and color Doppler study INDICATIONS FOR THE TEST: Chest pain COPD Heart Murmur Tobacco Smoking Palpitations Fatigue Syncope Edema+ Hypertension Diabetes Mellitus Rheumatic Fever SOB+QUIJANO Obesity Hyperlipidemia Family History HD Additional History TRACH, HOME O2, KIDNEY CA, AFIB, MRSA PNEUMONIA PATIENT INFORMATION HEIGHT: 70 WEIGHT:161 GENDER: Male B/P:149/84 2-D/M-MODE INTERPRETATION: 2-D MEASUREMENTS OBSERVED VALUES IN CMS Right Ventricular Dimension (RVDd) 3.0 Interventricular Septum (Thickness)(IVsd) 1.6 Left Ventricular Internal Dimensions(LVIDd) 4.6 Left Ventricular Posterior Wall (Thickness)(LVPWd) 1.3 Aortic Root 3.9 Aortic Cusp Separation 1.9 Left Atrial Dimensions (LAD) 4.2 2D 1. Left atrium is moderately enlarged, left ventricle is normal size, mild concentric left ventricular hypertrophy, hyperdynamic left ventricular systolic function, visually estimated ejection fraction over 65% with no regional wall motion abnormality. 2. The right atrium and right ventricle are moderately enlarged with normal contractility. 3. The aortic valve is thickened and calcified leaflet continue to display mobility. 4. The mitral valve has mitral annular calcification which extends and both anterior and posterior mitral leaflet 5. The tricuspid valve leaflets are minimally thickened. 6. The pulmonic valve is poorly visualized. 7. No significant pericardial effusion noted. DOPPLER INTERROGATION: Doppler interrogation of the aortic, mitral and tricuspid valvular presence of mild mitral and severe tricuspid regurgitation, calculated right ventricular systolic pressure 56 mmHg consistent with moderate pulmonary hypertension. Diastolic parameters are inconclusive. CONCLUSION: 1. Moderate biatrial enlargement, normal left ventricular size, mild concentric left ventricular hypertrophy, hyperdynamic left ventricular systolic function, visually estimated ejection fraction over 65% with no regional wall motion abnormality, diastolic parameters are inconclusive. 2. Mild mitral and severe tricuspid regurgitation, calculated right ventricular systolic pressure is 56 mmHg consistent with moderate pulmonary hypertension. 3. No significant pericardial effusion noted.
[2018-01-24 21:52] LABS: Hematocrit 29.5 % (42.0-52.0)
[2018-01-24 22:42] LABS: Hemoglobin 9.6 g/dL (14.1-18.0)
--- NOTE | 2018-01-25 08:13 | Progress Note ---
Internal Medicine - PN: Subj *Date: 01/25/18 *Time: 08:10 Interval history: Patient is stable, still unresponsive to commands, only opens his eyes, nonverbal at this time. Exam Vital signs and Labs for Last 24 Hours: Temp Pulse Resp BP Pulse Ox 97.6 F 62 18 105/79 L 100 01/25/18 04:00 01/25/18 04:00 01/25/18 04:00 01/25/18 04:00 01/25/18 04:00 Laboratory Results - last 24 hr 01/22/18 11:16: Urine Color Yellow, Urine Appearance Sl cloudy, Urine pH 6.5, Ur Specific [place] 1.010, Urine Protein 1+, Urine Glucose (UA) Negative, Urine Ketones Negative, Urine Blood Trace-l, Urine Nitrate Negative, Urine Bilirubin Negative, Urine Urobilinogen 0.2, Ur Leukocyte Esterase 3+ A, Urine WBC Tntc, Ur Squamous Epith Cells Occasional, Urine Bacteria 4+, Urine Yeast 2+ 01/22/18 12:35: Blood Type A Positive, Antibody Screen Negative, Crossmatch (AHG) See Detail 01/24/18 18:10: Vancomycin Trough 19.1 01/24/18 21:48: Hgb 9.6 L D, Hct 29.5 L I & O for Last 24 hours: Intake & Output 01/22/18 01/23/18 01/24/18 01/25/18 12:59 11:59 11:59 11:59 Intake Total 880 / 880 1298 / 1298 Output Total 1825 / 1825 1825 / 1825 Balance -945 / -945 -527 / -527 Weight 147 lb 6 oz Microbiology Reports for the Last 24 Hours: Microbiology 01/21/18 15:00 Sputum - Endotracheal Tube Aspirate Gram Stain - Final 01/21/18 15:00 Sputum - Endotracheal Tube Aspirate Sputum Culture - Final Staphylococcus aureus Enterobact cloac comp Acinetobacter lwoffii 01/22/18 11:16 Urine,Clean Catch Urine Culture - Preliminary Gram Positive Cocci Yeast#2 - *Routine HEENT Exam Head: Present: normocephalic Eye: Present: EOMI ENT: Present: mucous membranes dry - *Routine Neck Exam Present: supple - *Routine Respiratory Exam Present: patient mechanically ventilated (Tracheostomy tube), decreased breath sounds, crackles, diminished air movement - *Routine Cardiovascular Exam Present: RRR - *Routine Abdominal Exam Present: soft, normoactive bowel sounds, distended - *Routine Exam Patient deferred: scrotal exam (Swollen scrotum noted) - *Routine Extremities Exam Present: edema (2+ pitting bilaterally) - *Routine Skin Exam Present: dry - *Routine Neurological Exam Present: motor deficit, abnormal gait (Bedbound). Absent: alert, oriented X3 (GCS of 7), moving all extremities - Routine Psychiatric Exam Present: unable to assess Assessment and Plan (1) Sepsis Start date: 01/21/18 Current visit: Yes Status: Acute Qualifiers: Sepsis type: methicillin resistant Staphylococcus aureus Qualified Code(s): A41.02 - Sepsis due to Methicillin resistant Staphylococcus aureus Category: Medical Code(s): A41.9 - Sepsis, unspecified organism Secondary to acute complicated cystitis secondary to blood s.aureus and yeast, and bilateral pneumonia secondary to staph aureus, enterococcus faecalis, actinobacter. continue IV vancomycin for 14 days, will start on Levaquin today. Continue Diflucan. (2) No CPR or defibrillation, use all other resuscitative measures Current visit: No Status: Acute Category: Medical Code(s): Z78.9 - Other specified health status After having extensive conversation with the family, they still want to do everything for now for the patient. His CODE STATUS still remains AND (allow natural ). (3) Scrotal edema Current visit: No Status: Acute Category: Medical Code(s): N50.89 - Other specified disorders of the male genital organs Stable for now (4) Status post tracheostomy Current visit: No Status: Acute Category: Surgical Code(s): Z93.0 - Tracheostomy status No signs of local infection to the tracheostomy tube. Will provide routine tracheostomy tube care (5) Renal insufficiency Problem details: Patient only has 1 kidney Current visit: No Status: Acute Category: Medical Code(s): N28.9 - Disorder of kidney and ureter, unspecified We will trend with a renal function panel (6) Chronic atrial fibrillation Current visit: No Status: Acute Category: Medical Code(s): I48.2 - Chronic atrial fibrillation Continue home medication (7) On tube feeding diet Current visit: Yes Status: Acute Category: Medical Code(s): Z78.9 - Other specified health status Continue current tube feeds (8) Bilateral pneumonia Current visit: Yes Status: Acute Qualifiers: Pneumonia type: due to methicillin-resistant Staphylococcus aureus (MRSA) Lung location: lower lobe of lung Qualified Code(s): J15.212 - Pneumonia due to Methicillin resistant Staphylococcus aureus Category: Medical Code(s): J18.9 - Pneumonia, unspecified organism Secondary to staph aureus, enterococcus, and actinobacter. Continue IV vancomycin and Levaquin. (9) Anemia Current visit: No Status: Acute Qualifiers: Anemia type: due to chronic kidney disease Chronic kidney disease stage: stage 4 (severe) Qualified Code(s): N18.4 - Chronic kidney disease, stage 4 (severe); D63.1 - Anemia in chronic kidney disease Category: Medical Code(s): D64.9 - Anemia, unspecified Hemoglobin is 9.6 status post 4 units of PRBCs (10) UTI (urinary tract infection) due to urinary indwelling Alexandre catheter Current visit: Yes Status: Chronic Qualifiers: Indwelling urinary catheter type: indwelling urethral catheter Encounter type: sequela Qualified Code(s): T83.511S - Infection and inflammatory reaction due to indwelling urethral catheter, sequela; N39.0 - Urinary tract infection, site not specified Category: Medical Code(s): T83.511A - Infection and inflammatory reaction due to indwelling urethral catheter, initial encounter; N39.0 - Urinary tract infection, site not specified Secondary to staph aureus and yeast, will continue IV vancomycin and Diflucan (11) Acute on chronic respiratory failure with hypoxia Current visit: Yes Status: Acute Category: Medical Code(s): J96.21 - Acute and chronic respiratory failure with hypoxia We will provide supplemental oxygen through tracheostomy tube. Another ABGs today (12) Pulmonary hypertension Current visit: Yes Status: Acute Category: Medical Code(s): I27.20 - Pulmonary hypertension, unspecified With a pressure of 56, will monitor for now - Assessment and plan all Dx Assessment and Plan for all problems:: Mr. Romo is a very complex patient. I believe he will benefit from continuing care facility as he needs routine a tracheostomy tube care and IV vancomycin, Levaquin and Diflucan for at least 14 days. 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 Family is on board with going to continue care facility. Will await a decision from case management regarding placement.
[2018-01-25 09:00] LABS: Basophils % 0.3 % (0.1-2.0); Eosinophils # 0.4 K/mm3 (0.0-0.4); Eosinophils % 4.2 % (0.1-12.0); Hematocrit 32.5 % (42.0-52.0); Hemoglobin 10.4 g/dL (14.1-18.0); Lymphocytes # 0.8 K/mm3 (0.7-4.5); Lymphocytes % 8.9 K/mm3 (10-50); Mean Corpuscular HGB Conc 31.9 g/dL (31.8-35.4); Mean Corpuscular Hemoglobin 29.5 pg (27.0-31.2); Mean Corpuscular Volume 92.4 fl (80-94); Mean Platelet Volume 7.8 fl (7.4-10.4); Monocytes # 0.5 K/mm3 (0.1-1.0); Monocytes % 5.6 % (1.7-9.3); Neutrophils # 7.2 K/mm3 (1.8-7.8); Platelet Count 304 K/mm3 (142-424); Red Blood Count 3.52 M/mm3 (4.60-6.20); Red Cell Distribution Width 20.5 % (11.5-17.5); White Blood Count 8.9 K/mm3 (4.8-10.8)
[2018-01-25 09:12] LABS: Albumin Level 1.4 gm/dL (3.4-5.0); Albumin/Globulin Ratio 0.3 (1.1-1.8); Anion Gap 9.1 mEq/L (5-15); Bilirubin,Total 0.3 mg/dL (0.2-1.0); Globulin 4.9 gm/dl (1.3-3.2); Potassium 4.1 mmoL/L (3.5-5.1); Total Protein,Serum 6.3 gm/dL (6.4-8.2)
[2018-01-25 09:46] LABS: ABG Base Excess 7.7 mmol/L (-2.4-2.3); ABG Oxygen Saturation 96 % (90-100); ABG PCO2 48.8 mmhg (35.0-45.0); ABG PH 7.43 mmol/L (7.35-7.45); ABG PO2 79.7 mmhg (80-100); ABG TCO2 33.5 mmhg (23-27)
[2018-01-25 09:47] LABS: Allen's Test Patient Unable; Oxygen 40% TC %
--- NOTE | 2018-01-25 10:46 | Pharmacy Consult Notes ---
- Pharmacy Consult Date: 01/25/18 Time: 10:43 Referring provider: DR. GARZON Reason for Consult:: VANCOMYCIN TROUGH LEVEL Allergies and ADEs:: Allergies Allergy/AdvReac Type Severity Reaction Status Date / Time Opioids - Morphine Analogues Allergy Intermediate Verified 12/22/17 10:08 lorazepam [From Ativan] Allergy Rash Verified 01/21/18 17:56 Home Medications:: Home Medications Medication Instructions Recorded Confirmed Type Acetaminophen [Tylenol] 500 mg PO HS 12/22/17 01/22/18 History Amlodipine Besylate [Amlodipine 10 mg PO DAILY 12/22/17 01/21/18 History 10mg Tab] Argin/Glut/Cahmb/Collag/Mv-Min 1 each PO DAILY 12/22/17 01/21/18 History [Son Packet] Folic Acid [Folic Acid 1mg tablet] 1 mg PO DAILY 12/22/17 01/21/18 History L.acidoph,Paracasei, B.lactis 1 each PO BID 12/22/17 01/22/18 History [Probiotic] Melatonin [Melatin] 3 mg PO HS 12/22/17 01/22/18 History Metoprolol Tartrate 50 mg PO BID 01/21/18 01/21/18 History Omeprazole [Omeprazole 40mg 40 mg PO BID 01/21/18 01/21/18 History Capsule] Docusate Sodium 2.5 ml PO DAILY 01/22/18 01/22/18 History Furosemide [Lasix 40mg tab] 40 mg PO BID 01/22/18 01/22/18 History Multivit with Iron-Minerals 1 each PO DAILY 01/22/18 01/22/18 History [Spectravite Senior] Height: 1.8 m Weight: 66.848 kg Laboratory Results:: Laboratory Results - last 24 hr 01/22/18 11:16: Urine Color Yellow, Urine Appearance Sl cloudy, Urine pH 6.5, Ur Specific [place] 1.010, Urine Protein 1+, Urine Glucose (UA) Negative, Urine Ketones Negative, Urine Blood Trace-l, Urine Nitrate Negative, Urine Bilirubin Negative, Urine Urobilinogen 0.2, Ur Leukocyte Esterase 3+ A, Urine WBC Tntc, Ur Squamous Epith Cells Occasional, Urine Bacteria 4+, Urine Yeast 2+ 01/22/18 12:35: Blood Type A Positive, Antibody Screen Negative, Crossmatch (AHG) See Detail 01/24/18 18:10: Vancomycin Trough 19.1 01/24/18 21:48: Hgb 9.6 L D, Hct 29.5 L 01/25/18 08:23: Specimen Source L radial, O2 % 40% tc, ABG pH 7.43, ABG pCO2 48.8 H, ABG pO2 79.7 L, ABG HCO3 32.0 H, ABG Total CO2 33.5 H, ABG O2 Saturation 96, ABG Base Excess 7.7 H, [place] Test Patient unable 01/25/18 08:37: WBC 8.9, RBC 3.52 L D, Hgb 10.4 L, Hct 32.5 L, MCV 92.4, MCH 29.5, MCHC 31.9, RDW 20.5 H, Plt Count 304, MPV 7.8, Neut % (Auto) 81.0 H, Lymph % (Auto) 8.9 L, [place] % (Auto) 5.6, Eos % (Auto) 4.2, Baso % (Auto) 0.3, Neut # (Auto) 7.2, Lymph # (Auto) 0.8, [place] # (Auto) 0.5, Eos # (Auto) 0.4, Baso # (Auto) 0.0 01/25/18 08:37: Sodium 141, Potassium 4.1, Chloride 104, Carbon Dioxide 32, Anion Gap 9.1, BUN 47 H, Creatinine 1.93 H, Estimated Creat Clear 27, Estimated GFR 33 L, Est GFR ( Amer) 40 L, Glucose 142 H, Calcium 8.0 L, Total Bilirubin 0.3, AST 23, ALT 15, Alkaline Phosphatase 88, Total Protein 6.3 L, Albumin 1.4 L, Globulin 4.9 H, Albumin/Globulin Ratio 0.3 L Medical History: Reports:: Cancer (kidney) Denies:: Diabetes Mellitus Type 1, Diabetes Mellitus Type 2, Internal Pacemaker, MRSA Assessment and Plan (1) Sepsis Start date: 01/21/18 Current visit: Yes Status: Acute Qualifiers: Sepsis type: methicillin resistant Staphylococcus aureus Qualified Code(s): A41.02 - Sepsis due to Methicillin resistant Staphylococcus aureus Category: Medical Code(s): A41.9 - Sepsis, unspecified organism (2) No CPR or defibrillation, use all other resuscitative measures Current visit: No Status: Acute Category: Medical Code(s): Z78.9 - Other specified health status (3) Scrotal edema Current visit: No Status: Acute Category: Medical Code(s): N50.89 - Other specified disorders of the male genital organs (4) Status post tracheostomy Current visit: No Status: Acute Category: Surgical Code(s): Z93.0 - Tracheostomy status (5) Renal insufficiency Problem details: Patient only has 1 kidney Current visit: No Status: Acute Category: Medical Code(s): N28.9 - Disorder of kidney and ureter, unspecified (6) Chronic atrial fibrillation Current visit: No Status: Acute Category: Medical Code(s): I48.2 - Chronic atrial fibrillation (7) On tube feeding diet Current visit: Yes Status: Acute Category: Medical Code(s): Z78.9 - Other specified health status (8) Bilateral pneumonia Current visit: Yes Status: Acute Qualifiers: Pneumonia type: due to methicillin-resistant Staphylococcus aureus (MRSA) Lung location: lower lobe of lung Qualified Code(s): J15.212 - Pneumonia due to Methicillin resistant Staphylococcus aureus Category: Medical Code(s): J18.9 - Pneumonia, unspecified organism (9) Anemia Current visit: No Status: Acute Qualifiers: Anemia type: due to chronic kidney disease Chronic kidney disease stage: stage 4 (severe) Qualified Code(s): N18.4 - Chronic kidney disease, stage 4 (severe); D63.1 - Anemia in chronic kidney disease Category: Medical Code(s): D64.9 - Anemia, unspecified (10) UTI (urinary tract infection) due to urinary indwelling Alexandre catheter Current visit: Yes Status: Chronic Qualifiers: Indwelling urinary catheter type: indwelling urethral catheter Encounter type: sequela Qualified Code(s): T83.511S - Infection and inflammatory react ion due to indwelling urethral catheter, sequela; N39.0 - Urinary tract infection, site not specified Category: Medical Code(s): T83.511A - Infection and inflammatory reaction due to indwelling urethral catheter, initial encounter; N39.0 - Urinary tract infection, site not specified (11) Acute on chronic respiratory failure with hypoxia Current visit: Yes Status: Acute Category: Medical Code(s): J96.21 - Acute and chronic respiratory failure with hypoxia (12) Pulmonary hypertension Current visit: Yes Status: Acute Category: Medical Code(s): I27.20 - Pulmonary hypertension, unspecified - Assessment and plan all Dx Assessment and Plan for all problems:: BASED ON PATIENT FACTORS AND VANCOMYCIN TROUGH LEVEL, RECOMMEND DECREASING DOSE SLIGHTLY TO VANCOMYCIN 1250 MG IV Q36H. PHARMACY WILL CONTINUE TO MONITOR DAILY AND ADJUST APPROPRIATE.
[2018-01-26 06:54] LABS: Albumin Level 1.3 gm/dL (3.4-5.0); Albumin/Globulin Ratio 0.3 (1.1-1.8); Anion Gap 7.7 mEq/L (5-15); Bilirubin,Total 0.2 mg/dL (0.2-1.0); Calcium 7.9 mg/dL (8.5-10.1); Globulin 4.5 gm/dl (1.3-3.2); Potassium 3.7 mmoL/L (3.5-5.1); Total Protein,Serum 5.8 gm/dL (6.4-8.2)
[2018-01-26 07:04] LABS: Red Blood Count 3.09 M/mm3 (4.60-6.20); White Blood Count 8.3 K/mm3 (4.8-10.8)
[2018-01-26 07:05] LABS: Hematocrit 28.9 % (42.0-52.0); Lymphocytes % 10.2 % (10-50); Mean Corpuscular HGB Conc 31.4 g/dL (31.8-35.4); Mean Corpuscular Hemoglobin 29.3 pg (27.0-31.2); Mean Corpuscular Volume 93.5 fl (80-94); Mean Platelet Volume 7.9 fl (7.4-10.4); Monocytes % 6.1 % (1.7-9.3); Neutrophils % 79.8 % (37.0-80.0); Platelet Count 259 K/mm3 (142-424); Red Cell Distribution Width 19.8 % (11.5-17.5)
[2018-01-26 07:06] LABS: Basophils % 0.3 % (0.1-2.0); Eosinophils # 0.3 K/mm3 (0.0-0.4); Eosinophils % 3.5 % (0.1-12.0); Lymphocytes # 0.8 K/mm3 (0.7-4.5); Monocytes # 0.5 K/mm3 (0.1-1.0); Neutrophils # 6.6 K/mm3 (1.8-7.8)
[2018-01-26 07:19] LABS: Hemoglobin 9.1 g/dL (14.1-18.0)
--- NOTE | 2018-01-26 08:07 | Progress Note ---
<Evelin Miguel - Last Filed: 01/26/18 08:04> Internal Medicine - PN: Subj *Date: 01/26/18 *Time: 08:04 Interval history: Patient is still unresponsive to commands. He will open his eyes. He is nonverbal and has copious ET secretions. Exam Vital signs and Labs for Last 24 Hours: Temp Pulse Resp BP Pulse Ox 98.5 F 60 16 148/72 H 95 01/26/18 04:00 01/26/18 04:00 01/26/18 04:00 01/26/18 04:00 01/26/18 07:04 Laboratory Results - last 24 hr 01/25/18 08:23: Specimen Source L radial, O2 % 40% tc, ABG pH 7.43, ABG pCO2 48.8 H, ABG pO2 79.7 L, ABG HCO3 32.0 H, ABG Total CO2 33.5 H, ABG O2 Saturation 96, ABG Base Excess 7.7 H, [place] Test Patient unable 01/25/18 08:37: WBC 8.9, RBC 3.52 L D, Hgb 10.4 L, Hct 32.5 L, MCV 92.4, MCH 29.5, MCHC 31.9, RDW 20.5 H, Plt Count 304, MPV 7.8, Neut % (Auto) 81.0 H, Lymph % (Auto) 8.9 L, [place] % (Auto) 5.6, Eos % (Auto) 4.2, Baso % (Auto) 0.3, Neut # (Auto) 7.2, Lymph # (Auto) 0.8, [place] # (Auto) 0.5, Eos # (Auto) 0.4, Baso # (Auto) 0.0 01/25/18 08:37: Sodium 141, Potassium 4.1, Chloride 104, Carbon Dioxide 32, Anion Gap 9.1, BUN 47 H, Creatinine 1.93 H, Estimated Creat Clear 27, Estimated GFR 33 L, Est GFR ( Amer) 40 L, Glucose 142 H, Calcium 8.0 L, Total Bilirubin 0.3, AST 23, ALT 15, Alkaline Phosphatase 88, Total Protein 6.3 L, Albumin 1.4 L, Globulin 4.9 H, Albumin/Globulin Ratio 0.3 L 01/26/18 06:29: WBC 8.3, RBC 3.09 L, Hgb 9.1 L D, Hct 28.9 L, MCV 93.5, MCH 29.3, MCHC 31.4 L, RDW 19.8 H, Plt Count 259, MPV 7.9, Neut % (Auto) 79.8, Lymph % (Auto) 10.2, [place] % (Auto) 6.1, Eos % (Auto) 3.5, Baso % (Auto) 0.3, Neut # (Auto) 6.6, Lymph # (Auto) 0.8, [place] # (Auto) 0.5, Eos # (Auto) 0.3, Baso # (Auto) 0.0 01/26/18 06:29: Sodium 142, Potassium 3.7, Chloride 104, Carbon Dioxide 34 H, Anion Gap 7.7, BUN 47 H, Creatinine 1.93 H, Estimated Creat Clear 28, Estimated GFR 33 L, Est GFR ( Amer) 40 L, Glucose 137 H, Calcium 7.9 L, Total Bilirubin 0.2, AST 20, ALT 12, Alkaline Phosphatase 86, Total Protein 5.8 L, Albumin 1.3 L, Globulin 4.5 H, Albumin/Globulin Ratio 0.3 L I & O for Last 24 hours: Intake & Output 01/23/18 01/24/18 01/25/18 01/26/18 11:59 11:59 11:59 11:59 Intake Total 880 / 880 1298 / 1298 1190 / 1190 Output Total 1825 / 1825 1825 / 1825 1775 / 1775 Balance -945 / -945 -527 / -527 -585 / -585 Weight 147 lb 6 oz 150 lb 10.834 oz Microbiology Reports for the Last 24 Hours: Microbiology 01/22/18 11:16 Urine,Clean Catch Urine Culture - Preliminary Enterococcus faecium (grp d) Yeast#2 01/21/18 15:00 Sputum - Endotracheal Tube Aspirate Gram Stain - Final 01/21/18 15:00 Sputum - Endotracheal Tube Aspirate Sputum Culture - Final Staphylococcus aureus Enterobact cloac comp Acinetobacter lwoffii - Constitutional Comments: Nonverbal, does not respond to verbal stimuli - *Routine Neck Exam Comments: Copious secretions from ET tube - *Routine Respiratory Exam Present: rales, rhonchi, diminished air movement - *Routine Cardiovascular Exam Present: RRR - *Routine Abdominal Exam Present: soft, normoactive bowel sounds. Absent: tenderness - *Routine Extremities Exam Present: edema (2+ pretibial edema bilaterally). Absent: cyanosis, clubbing Assessment and Plan (1) Sepsis Start date: 01/21/18 Current visit: Yes Status: Acute Qualifiers: Sepsis type: methicillin resistant Staphylococcus aureus Qualified Code(s): A41.02 - Sepsis due to Methicillin resistant Staphylococcus aureus Category: Medical Code(s): A41.9 - Sepsis, unspecified organism (2) No CPR or defibrillation, use all other resuscitative measures Current visit: No Status: Acute Category: Medical Code(s): Z78.9 - Other specified health status (3) Scrotal edema Current visit: No Status: Acute Category: Medical Code(s): N50.89 - Other specified disorders of the male genital organs (4) Status post tracheostomy Current visit: No Status: Acute Category: Surgical Code(s): Z93.0 - Tracheostomy status (5) Renal insufficiency Problem details: Patient only has 1 kidney Current visit: No Status: Acute Category: Medical Code(s): N28.9 - Disorder of kidney and ureter, unspecified (6) Chronic atrial fibrillation Current visit: No Status: Acute Category: Medical Code(s): I48.2 - Chronic atrial fibrillation (7) On tube feeding diet Current visit: Yes Status: Acute Category: Medical Code(s): Z78.9 - Other specified health status (8) Bilateral pneumonia Current visit: Yes Status: Acute Qualifiers: Pneumonia type: due to methicillin-resistant Staphylococcus aureus (MRSA) Lung location: lower lobe of lung Qualified Code(s): J15.212 - Pneumonia due to Methicillin resistant Staphylococcus aureus Category: Medical Code(s): J18.9 - Pneumonia, unspecified organism (9) Anemia Current visit: No Status: Acute Qualifiers: Anemia type: due to chronic kidney disease Chronic kidney disease stage: stage 4 (severe) Qualified Code(s): N18.4 - Chronic kidney disease, stage 4 (severe); D63.1 - Anemia in chronic kidney disease Category: Medical Code(s): D64.9 - Anemia, unspecified (10) UTI (urinary tract infection) due to urinary indwelling Alexandre catheter Current visit: Yes Status: Chronic Qualifiers: Indwelling urinary catheter type: indwelling urethral catheter Encounter type: sequela Qualified Code(s): T83.511S - Infection and inflammatory reaction due to indwelling urethral catheter, sequela; N39.0 - Urinary tract infection, site not specified Category: Medical Code(s): T83.511A - Infection and inflammatory reaction due to indwelling urethral catheter, initial encounter; N39.0 - Urinary tract infection, site not specified (11) Acute on chronic respiratory failure with hypoxia Current visit: Yes Status: Acute Category: Medical Code(s): J96.21 - Acute and chronic respiratory failure with hypoxia (12) Pulmonary hypertension Current visit: Yes Status: Acute Category: Medical Code(s): I27.20 - Pulmonary hypertension, unspecified - Assessment and plan all Dx Assessment and Plan for all problems:: Urine is positive for vancomycin resistant enterococcus. Tracheal tube aspirate is positive for enterococcus, MRSA, and Acinetobacter. Discussed with pharmacy and will switch to zyvox. Patient is awaiting a bed at a care center. <Jill Guzman - Last Filed: 01/26/18 12:02> Exam Vital signs and Labs for Last 24 Hours: Temp Pulse Resp BP Pulse Ox 98.8 F 73 20 154/78 H 98 01/26/18 11:22 01/26/18 11:22 01/26/18 11:22 01/26/18 11:22 01/26/18 11:22 Laboratory Results - last 24 hr 01/26/18 06:29: WBC 8.3, RBC 3.09 L, Hgb 9.1 L D, Hct 28.9 L, MCV 93.5, MCH 29.3, MCHC 31.4 L, RDW 19.8 H, Plt Count 259, MPV 7.9, Neut % (Auto) 79.8, Lymph % (Auto) 10.2, [place] % (Auto) 6.1, Eos % (Auto) 3.5, Baso % (Auto) 0.3, Neut # (Auto) 6.6, Lymph # (Auto) 0.8, [place] # (Auto) 0.5, Eos # (Auto) 0.3, Baso # (Auto) 0.0 01/26/18 06:29: Sodium 142, Potassium 3.7, Chloride 104, Carbon Dioxide 34 H, Anion Gap 7.7, BUN 47 H, Creatinine 1.93 H, Estimated Creat Clear 28, Estimated GFR 33 L, Est GFR ( Amer) 40 L, Glucose 137 H, Calcium 7.9 L, Total Bilirubin 0.2, AST 20, ALT 12, Alkaline Phosphatase 86, Total Protein 5.8 L, Albumin 1.3 L, Globulin 4.5 H, Albumin/Globulin Ratio 0.3 L I & O for Last 24 hours: Intake & Output 01/23/18 01/24/18 01/25/18 01/26/18 11:59 11:59 11:59 11:59 Intake Total 880 / 880 1298 / 1298 1190 / 1190 Output Total 1825 / 1825 1825 / 1825 1775 / 1775 Balance -945 / -945 -527 / -527 -585 / -585 Weight 147 lb 6 oz 150 lb 10.834 oz Microbiology Reports for the Last 24 Hours: Microbiology 01/22/18 11:16 Urine,Clean Catch Urine Culture - Preliminary Enterococcus faecium (grp d) Yeast#2 01/21/18 15:00 Sputum - Endotracheal Tube Aspirate Gram Stain - Final 01/21/18 15:00 Sputum - Endotracheal Tube Aspirate Sputum Culture - Final Staphylococcus aureus Enterobact cloac comp Acinetobacter lwoffii - *Routine HEENT Exam Head: Present: normocephalic Eye: Present: EOMI ENT: Present: mucous membranes dry - *Routine Neck Exam Present: supple - *Routine Respiratory Exam Present: patient mechanically ventilated (on tracheostomy ), decreased breath sounds, diminished air movement - *Routine Cardiovascular Exam Present: RRR - *Routine Abdominal Exam Present: soft, normoactive bowel sounds - *Routine Exam Patient deferred: scrotal exam (swollen ) - *Routine Extremities Exam Present: edema - *Routine Skin Exam Present: intact, dry - *Routine Neurological Exam Absent: alert, oriented X3, moving all extremities, normal tone (GCS is 7) - Routine Psychiatric Exam Present: unable to assess Assessment and Plan (1) Sepsis Start date: 01/21/18 Current visit: Yes Status: Acute Qualifiers: Sepsis type: methicillin resistant Staphylococcus aureus Qualified Code(s): A41.02 - Sepsis due to Methicillin resistant Staphylococcus aureus Category: Medical Code(s): A41.9 - Sepsis, unspecified organism (2) No CPR or defibrillation, use all other resuscitative measures Current visit: No Status: Acute Category: Medical Code(s): Z78.9 - Other specified health status (3) Scrotal edema Current visit: No Status: Acute Category: Medical Code(s): N50.89 - Other specified disorders of the male genital organs (4) Status post tracheostomy Current visit: No Status: Acute Category: Surgical Code(s): Z93.0 - Tracheostomy status (5) Renal insufficiency Problem details: Patient only has 1 kidney Current visit: No Status: Acute Category: Medical Code(s): N28.9 - Disorder of kidney and ureter, unspecified (6) Chronic atrial fibrillation Current visit: No Status: Acute Category: Medical Code(s): I48.2 - Chronic atrial fibrillation (7) On tube feeding diet Current visit: Yes Status: Acute Category: Medical Code(s): Z78.9 - Other specified health status (8) Bilateral pneumonia Current visit: Yes Status: Acute Qualifiers: Pneumonia type: due to methicillin-resistant Staphylococcus aureus (MRSA) Lung location: lower lobe of lung Qualified Code(s): J15.212 - Pneumonia due to Methicillin resistant Staphylococcus aureus Category: Medical Code(s): J18.9 - Pneumonia, unspecified organism (9) Anemia Current visit: No Status: Acute Qualifiers: Anemia type: due to chronic kidney disease Chronic kidney disease stage: stage 4 (severe) Qualified Code(s): N18.4 - Chronic kidney disease, stage 4 (severe); D63.1 - Anemia in chronic kidney disease Category: Medical Code(s): D64.9 - Anemia, unspecified (10) UTI (urinary tract infection) due to urinary indwelling Alexandre catheter Current visit: Yes Status: Chronic Qualifiers: Indwelling urinary catheter type: indwelling urethral catheter Encounter type: sequela Qualified Code(s): T83.511S - Infection and inflammatory reaction due to indwelling urethral catheter, sequela; N39.0 - Urinary tract infection, site not specified Category: Medical Code(s): T83.511A - Infection and inflammatory reaction due to indwelling urethral catheter, initial encounter; N39.0 - Urinary tract infection, site not specified (11) Acute on chronic respiratory failure with hypoxia Current visit: Yes Status: Acute Category: Medical Code(s): J96.21 - Acute and chronic respiratory failure with hypoxia (12) Pulmonary hypertension Current visit: Yes Status: Acute Category: Medical Code(s): I27.20 - Pulmonary hypertension, unspecified - Assessment and plan all Dx Assessment and Plan for all problems:: will switch to zyvox. stop vanc, continue diflucan and levaquin. awaiting for [facility], [place], operated by [facility] decision.
--- NOTE | 2018-01-27 08:25 | Progress Note ---
<Evelin Miguel - Last Filed: 01/27/18 08:21> Internal Medicine - PN: Subj *Date: 01/27/18 *Time: 08:22 Interval history: The patient is awake this morning and moves his eyes in response to questioning. He is nonverbal. He still has secretions coming from his ET tube. Exam Vital signs and Labs for Last 24 Hours: Temp Pulse Resp BP Pulse Ox 98.1 F 64 64 H 140/58 L 99 01/27/18 04:00 01/27/18 04:00 01/27/18 04:00 01/27/18 04:00 01/27/18 04:00 I & O for Last 24 hours: Intake & Output 01/24/18 01/25/18 01/26/18 01/27/18 11:59 11:59 11:59 11:59 Intake Total 880 / 880 1298 / 1298 1490 / 1490 3851 / 3851 Output Total 1825 / 1825 1825 / 1825 1775 / 1775 1475 / 1475 Balance -945 / -945 -527 / -527 -285 / -285 2376 / 2376 Weight 147 lb 6 oz 150 lb 10.834 oz 154 lb 4 oz Microbiology Reports for the Last 24 Hours: Microbiology 01/22/18 11:16 Urine,Clean Catch Urine Culture - Final Enterococcus faecium (grp d) Yeast#2 01/22/18 11:16 Urine,Clean Catch Vancomycin Resist Enterococci Scrn - Final 01/21/18 14:30 Blood Blood Culture - Final NO GROWTH AFTER 5 DAYS 01/21/18 14:30 Blood Blood Culture - Final NO GROWTH AFTER 5 DAYS - Constitutional Comments: Lethargic, nonverbal - *Routine Neck Exam Comments: secretions from ET tube - *Routine Respiratory Exam Present: decreased breath sounds, rhonchi, crackles - *Routine Cardiovascular Exam Present: RRR - *Routine Abdominal Exam Present: soft, normoactive bowel sounds. Absent: tenderness - *Routine Extremities Exam Absent: cyanosis, clubbing, edema Assessment and Plan (1) Sepsis Start date: 01/21/18 Current visit: Yes Status: Acute Qualifiers: Sepsis type: methicillin resistant Staphylococcus aureus Qualified Code(s): A41.02 - Sepsis due to Methicillin resistant Staphylococcus aureus Category: Medical Code(s): A41.9 - Sepsis, unspecified organism (2) No CPR or defibrillation, use all other resuscitative measures Current visit: No Status: Acute Category: Medical Code(s): Z78.9 - Other specified health status (3) Scrotal edema Current visit: No Status: Acute Category: Medical Code(s): N50.89 - Other specified disorders of the male genital organs (4) Status post tracheostomy Current visit: No Status: Acute Category: Surgical Code(s): Z93.0 - Tracheostomy status (5) Renal insufficiency Problem details: Patient only has 1 kidney Current visit: No Status: Acute Category: Medical Code(s): N28.9 - Disorder of kidney and ureter, unspecified (6) Chronic atrial fibrillation Current visit: No Status: Acute Category: Medical Code(s): I48.2 - Chronic atrial fibrillation (7) On tube feeding diet Current visit: Yes Status: Acute Category: Medical Code(s): Z78.9 - Other specified health status (8) Bilateral pneumonia Current visit: Yes Status: Acute Qualifiers: Pneumonia type: due to methicillin-resistant Staphylococcus aureus (MRSA) Lung location: lower lobe of lung Qualified Code(s): J15.212 - Pneumonia due to Methicillin resistant Staphylococcus aureus Category: Medical Code(s): J18.9 - Pneumonia, unspecified organism (9) Anemia Current visit: No Status: Acute Qualifiers: Anemia type: due to chronic kidney disease Chronic kidney disease stage: stage 4 (severe) Qualified Code(s): N18.4 - Chronic kidney disease, stage 4 (severe); D63.1 - Anemia in chronic kidney disease Category: Medical Code(s): D64.9 - Anemia, unspecified (10) UTI (urinary tract infection) due to urinary indwelling Alexandre catheter Current visit: Yes Status: Chronic Qualifiers: Indwelling urinary catheter type: indwelling urethral catheter Encounter type: sequela Qualified Code(s): T83.511S - Infection and inflammatory reaction due to indwelling urethral catheter, sequela; N39.0 - Urinary tract infection, site not specified Category: Medical Code(s): T83.511A - Infection and inflammatory reaction due to indwelling urethral catheter, initial encounter; N39.0 - Urinary tract infection, site not specified (11) Acute on chronic respiratory failure with hypoxia Current visit: Yes Status: Acute Category: Medical Code(s): J96.21 - Acute and chronic respiratory failure with hypoxia (12) Pulmonary hypertension Current visit: Yes Status: Acute Category: Medical Code(s): I27.20 - Pulmonary hypertension, unspecified - Assessment and plan all Dx Assessment and Plan for all problems:: Will continue antibiotics and await placement at a care center. <Jill Guzman - Last Filed: 01/27/18 08:55> Internal Medicine - PN: Subj Interval history: Patient open his eyes during exam today. But still not able to follow any commands. Exam Vital signs and Labs for Last 24 Hours: Temp Pulse Resp BP Pulse Ox 98.2 F 104 H 20 146/80 H 99 01/27/18 08:00 01/27/18 08:00 01/27/18 08:00 01/27/18 08:00 01/27/18 08:00 I & O for Last 24 hours: Intake & Output 01/24/18 01/25/18 01/26/18 01/27/18 11:59 11:59 11:59 11:59 Intake Total 880 / 880 1298 / 1298 1490 / 1490 3851 / 3851 Output Total 1825 / 1825 1825 / 1825 1775 / 1775 1475 / 1475 Balance -945 / -945 -527 / -527 -285 / -285 2376 / 2376 Weight 147 lb 6 oz 150 lb 10.834 oz 154 lb 4 oz Microbiology Reports for the Last 24 Hours: Microbiology 01/22/18 11:16 Urine,Clean Catch Urine Culture - Final Enterococcus faecium (grp d) Yeast#2 01/22/18 11:16 Urine,Clean Catch Vancomycin Resist Enterococci Scrn - Final 01/21/18 14:30 Blood Blood Culture - Final NO GROWTH AFTER 5 DAYS 01/21/18 14:30 Blood Blood Culture - Final NO GROWTH AFTER 5 DAYS - *Routine HEENT Exam Head: Present: normocephalic Eye: Present: EOMI ENT: Present: mucous membranes moist - *Routine Neck Exam Present: supple - *Routine Respiratory Exam Present: patient mechanically ventilated (On tracheostomy tube), decreased breath sounds, crackles (Mostly on the left side) - *Routine Cardiovascular Exam Present: RRR - *Routine Abdominal Exam Present: soft, normoactive bowel sounds - Routine Back/Spine/Pelvis Exam Back/Spine: Absent: full ROM - *Routine Skin Exam Present: intact - *Routine Neurological Exam Absent: alert, oriented X3 (GCS is 7) - Routine Psychiatric Exam Present: unable to assess Assessment and Plan (1) Sepsis Start date: 01/21/18 Current visit: Yes Status: Acute Qualifiers: Sepsis type: methicillin resistant Staphylococcus aureus Qualified Code(s): A41.02 - Sepsis due to Methicillin resistant Staphylococcus aureus Category: Medical Code(s): A41.9 - Sepsis, unspecified organism Secondary to bilateral pneumonia secondary to MRSA, Enterobacter, actinobacter, sensitive to Zyvox and Levaquin; 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, sensitive to Zyvox (2) No CPR or defibrillation, use all other resuscitative measures Current visit: No Status: Acute Category: Medical Code(s): Z78.9 - Other specified health status (3) Scrotal edema Current visit: No Status: Acute Category: Medical Code(s): N50.89 - Other specified disorders of the male genital organs (4) Status post tracheostomy Current visit: No Status: Acute Category: Surgical Code(s): Z93.0 - Tracheostomy status (5) Renal insufficiency Problem details: Patient only has 1 kidney Current visit: No Status: Acute Category: Medical Code(s): N28.9 - Disorder of kidney and ureter, unspecified (6) Chronic atrial fibrillation Current visit: No Status: Acute Category: Medical Code(s): I48.2 - Chronic atrial fibrillation (7) On tube feeding diet Current visit: Yes Status: Acute Category: Medical Code(s): Z78.9 - Other specified health status (8) Bilateral pneumonia Current visit: Yes Status: Acute Qualifiers: Pneumonia type: due to methicillin-resistant Staphylococcus aureus (MRSA) Lung location: lower lobe of lung Qualified Code(s): J15.212 - Pneumonia due to Methicillin resistant Staphylococcus aureus Category: Medical Code(s): J18.9 - Pneumonia, unspecified organism (9) Anemia Current visit: No Status: Acute Qualifiers: Anemia type: due to chronic kidney disease Chronic kidney disease stage: stage 4 (severe) Qualified Code(s): N18.4 - Chronic kidney disease, stage 4 (severe); D63.1 - Anemia in chronic kidney disease Category: Medical Code(s): D64.9 - Anemia, unspecified (10) UTI (urinary tract infection) due to urinary indwelling Alexandre catheter Current visit: Yes Status: Chronic Qualifiers: Indwelling urinary catheter type: indwelling urethral catheter Encounter type: sequela Qualified Code(s): T83.511S - Infection and inflammatory reaction due to indwelling urethral catheter, sequela; N39.0 - Urinary tract infection, site not specified Category: Medical Code(s): T83.511A - Infection and inflammatory reaction due to indwelling urethral catheter, initial encounter; N39.0 - Urinary tract infection, site not specified (11) Acute on chronic respiratory failure with hypoxia Current visit: Yes Status: Acute Category: Medical Code(s): J96.21 - Acute and chronic respiratory failure with hypoxia (12) Pulmonary hypertension Current visit: Yes Status: Acute Category: Medical Code(s): I27.20 - Pulmonary hypertension, unspecified - Assessment and plan all Dx Assessment and Plan for all problems:: We will continue IV antibiotics and await placement at a [facility], [place].
--- NOTE | 2018-01-28 11:54 | Progress Note ---
Internal Medicine - PN: Subj *Date: 01/28/18 *Time: 08:30 Interval history: Patient is not improving with his GCS at 7 for the past 3-4 days. Still not responding to commands and is not having any significant improvement despite of aggressive treatment. Exam Vital signs and Labs for Last 24 Hours: Temp Pulse Resp BP Pulse Ox 98.0 F 62 18 118/61 98 01/28/18 08:00 01/28/18 08:00 01/28/18 08:00 01/28/18 08:00 01/28/18 08:00 I & O for Last 24 hours: Intake & Output 01/25/18 01/26/18 01/27/18 01/28/18 11:59 11:59 11:59 11:59 Intake Total 1298 / 1298 1490 / 1490 4551 / 4551 2716 / 2716 Output Total 1825 / 1825 1775 / 1775 1475 / 1475 870 / 870 Balance -527 / -527 -285 / -285 3076 / 3076 1846 / 1846 Weight 147 lb 6 oz 150 lb 10.834 oz 154 lb 4 oz Microbiology Reports for the Last 24 Hours: Microbiology 01/22/18 11:16 Urine,Clean Catch Urine Culture - Final Enterococcus faecium (grp d) Yeast#2 01/22/18 11:16 Urine,Clean Catch Vancomycin Resist Enterococci Scrn - Final - *Routine HEENT Exam Head: Present: normocephalic Eye: Present: EOMI. Absent: normal accommodation ENT: Present: mucous membranes dry - *Routine Neck Exam Present: supple Comments: tracheostomy tube in place - *Routine Respiratory Exam Present: decreased breath sounds, crackles, distant breath sounds, diminished air movement. Absent: CTA bilaterally - *Routine Cardiovascular Exam Present: RRR - *Routine Abdominal Exam Present: soft, normoactive bowel sounds, distended - *Routine Extremities Exam Present: edema (2+ pitting bilaterally) - *Routine Skin Exam Present: dry - *Routine Neurological Exam Absent: alert, oriented X3 (GCS is 7) - Routine Psychiatric Exam Present: unable to assess Assessment and Plan (1) Sepsis Start date: 01/21/18 Current visit: Yes Status: Acute Qualifiers: Sepsis type: methicillin resistant Staphylococcus aureus Qualified Code(s): A41.02 - Sepsis due to Methicillin resistant Staphylococcus aureus Category: Medical Code(s): A41.9 - Sepsis, unspecified organism secondary to bilateral pna 2/2 MRSA< enterobacyer and actinobacter sesnsitive to zyvox and levaquin and acute complicated cystitis 2/2 Vanc resistant MRSA sensitive to zyvox. (2) No CPR or defibrillation, use all other resuscitative measures Current visit: No Status: Acute Category: Medical Code(s): Z78.9 - Other specified health status (3) Scrotal edema Current visit: No Status: Acute Category: Medical Code(s): N50.89 - Other specified disorders of the male genital organs (4) Status post tracheostomy Current visit: No Status: Acute Category: Surgical Code(s): Z93.0 - Tracheostomy status (5) Renal insufficiency Problem details: Patient only has 1 kidney Current visit: No Status: Acute Category: Medical Code(s): N28.9 - Disorder of kidney and ureter, unspecified (6) Chronic atrial fibrillation Current visit: No Status: Acute Category: Medical Code(s): I48.2 - Chronic atrial fibrillation (7) On tube feeding diet Current visit: Yes Status: Acute Category: Medical Code(s): Z78.9 - Other specified health status (8) Bilateral pneumonia Current visit: Yes Status: Acute Qualifiers: Pneumonia type: due to methicillin-resistant Staphylococcus aureus (MRSA) Lung location: lower lobe of lung Qualified Code(s): J15.212 - Pneumonia due to Methicillin resistant Staphylococcus aureus Category: Medical Code(s): J18.9 - Pneumonia, unspecified organism (9) Anemia Current visit: No Status: Acute Qualifiers: Anemia type: due to chronic kidney disease Chronic kidney disease stage: stage 4 (severe) Qualified Code(s): N18.4 - Chronic kidney disease, stage 4 (severe); D63.1 - Anemia in chronic kidney disease Category: Medical Code(s): D64.9 - Anemia, unspecified (10) UTI (urinary tract infection) due to urinary indwelling Alexandre catheter Current visit: Yes Status: Chronic Qualifiers: Indwelling urinary catheter type: indwelling urethral catheter Encounter type: sequela Qualified Code(s): T83.511S - Infection and inflammatory reaction due to indwelling urethral catheter, sequela; N39.0 - Urinary tract infection, site not specified Category: Medical Code(s): T83.511A - Infection and inflammatory reaction due to indwelling urethral catheter, initial encounter; N39.0 - Urinary tract infection, site not specified (11) Acute on chronic respiratory failure with hypoxia Current visit: Yes Status: Acute Category: Medical Code(s): J96.21 - Acute and chronic respiratory failure with hypoxia (12) Pulmonary hypertension Current visit: Yes Status: Acute Category: Medical Code(s): I27.20 - Pulmonary hypertension, unspecified - Assessment and plan all Dx Assessment and Plan for all problems:: continue current IV abx, will talk to family about poor prognosis and ask them how they want to proceed from here.
[2018-01-29 07:23] LABS: Basophils % 0.4 % (0.1-2.0); Eosinophils # 0.3 K/mm3 (0.0-0.4); Eosinophils % 3.6 % (0.1-12.0); Hematocrit 30.6 % (42.0-52.0); Hemoglobin 9.5 g/dL (14.1-18.0); Lymphocytes # 0.9 K/mm3 (0.7-4.5); Lymphocytes % 10.8 % (10-50); Mean Corpuscular HGB Conc 31.1 g/dL (31.8-35.4); Mean Corpuscular Hemoglobin 29.2 pg (27.0-31.2); Mean Platelet Volume 8.1 fl (7.4-10.4); Monocytes # 0.6 K/mm3 (0.1-1.0); Monocytes % 7.2 % (1.7-9.3); Neutrophils # 6.7 K/mm3 (1.8-7.8); Platelet Count 233 K/mm3 (142-424); Red Blood Count 3.25 M/mm3 (4.60-6.20); Red Cell Distribution Width 19.1 % (11.5-17.5); White Blood Count 8.6 K/mm3 (4.8-10.8)
[2018-01-29 07:33] LABS: Albumin Level 1.5 gm/dL (3.4-5.0); Albumin/Globulin Ratio 0.3 (1.1-1.8); Anion Gap 9.4 mEq/L (5-15); Bilirubin,Total 0.2 mg/dL (0.2-1.0); Calcium 8.1 mg/dL (8.5-10.1); Globulin 4.8 gm/dl (1.3-3.2); Potassium 4.4 mmoL/L (3.5-5.1); Total Protein,Serum 6.3 gm/dL (6.4-8.2)
--- NOTE | 2018-01-29 10:57 | Progress Note ---
Internal Medicine - PN: Subj *Date: 01/29/18 *Time: 10:00 Interval history: Patient is same as yesterday. His GCS is 7. Still not responding to any commands and not opening his eyes this morning during rounds. Review of system not obtainable secondary to being unable to respond. Exam Vital signs and Labs for Last 24 Hours: Temp Pulse Resp BP Pulse Ox 98 F 58 L 20 122/87 96 01/29/18 08:00 01/29/18 00:00 01/29/18 08:00 01/29/18 08:00 01/29/18 08:00 Laboratory Results - last 24 hr 01/29/18 06:50: WBC 8.6, RBC 3.25 L, Hgb 9.5 L, Hct 30.6 L, MCV 94.0, MCH 29.2, MCHC 31.1 L, RDW 19.1 H, Plt Count 233, MPV 8.1, Neut % (Auto) 78.0, Lymph % (Auto) 10.8, [place] % (Auto) 7.2, Eos % (Auto) 3.6, Baso % (Auto) 0.4, Neut # (Auto) 6.7, Lymph # (Auto) 0.9, [place] # (Auto) 0.6, Eos # (Auto) 0.3, Baso # (Auto) 0.0 01/29/18 06:50: Sodium 137, Potassium 4.4, Chloride 101, Carbon Dioxide 31, Anion Gap 9.4, BUN 52 H, Creatinine 1.98 H, Estimated Creat Clear 29, Estimated GFR 32 L, Est GFR ( Amer) 39 L, Glucose 131 H, Calcium 8.1 L, Total Bilirubin 0.2, AST 22, ALT 14, Alkaline Phosphatase 96, Total Protein 6.3 L, Albumin 1.5 L, Globulin 4.8 H, Albumin/Globulin Ratio 0.3 L I & O for Last 24 hours: Intake & Output 01/26/18 01/27/18 01/28/18 01/29/18 11:59 11:59 11:59 11:59 Intake Total 1490 / 1490 4551 / 4551 2816 / 2816 3063 / 3063 Output Total 1775 / 1775 1475 / 1475 870 / 870 450 / 450 Balance -285 / -285 3076 / 3076 1946 / 1946 2613 / 2613 Weight 150 lb 10.834 oz 154 lb 4 oz 162 lb 3 oz - *Routine HEENT Exam Head: Present: normocephalic Eye: Present: EOMI ENT: Present: mucous membranes dry - *Routine Neck Exam Present: supple, full ROM - *Routine Respiratory Exam Present: decreased breath sounds, distant breath sounds, diminished air movement Comments: Tracheostomy tube in - *Routine Cardiovascular Exam Present: RRR - *Routine Abdominal Exam Present: soft, normoactive bowel sounds, distended. Absent: tenderness Comments: PEG tube in - *Routine Extremities Exam Present: edema (2+ pitting edema bilateral) - *Routine Skin Exam Present: dry - *Routine Neurological Exam Absent: alert, oriented X3 - Routine Psychiatric Exam Present: unable to assess Assessment and Plan (1) Sepsis Start date: 01/21/18 Current visit: Yes Status: Acute Qualifiers: Sepsis type: methicillin resistant Staphylococcus aureus Qualified Code(s): A41.02 - Sepsis due to Methicillin resistant Staphylococcus aureus Category: Medical Code(s): A41.9 - Sepsis, unspecified organism Secondary to bilateral pneumonia from MRSA, Enterobacter, actinobacter, sensitiv e to Zosyn and Levaquin; and 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 and yeast, sensitive to Zosyn and Diflucan (2) No CPR or defibrillation, use all other resuscitative measures Current visit: No Status: Acute Category: Medical Code(s): Z78.9 - Other specified health status (3) Scrotal edema Current visit: No Status: Acute Category: Medical Code(s): N50.89 - Other specified disorders of the male genital organs (4) Status post tracheostomy Current visit: No Status: Acute Category: Surgical Code(s): Z93.0 - Tracheostomy status (5) Renal insufficiency Problem details: Patient only has 1 kidney Current visit: No Status: Acute Category: Medical Code(s): N28.9 - Disorder of kidney and ureter, unspecified (6) Chronic atrial fibrillation Current visit: No Status: Acute Category: Medical Code(s): I48.2 - Chronic atrial fibrillation (7) On tube feeding diet Current visit: Yes Status: Acute Category: Medical Code(s): Z78.9 - Other specified health status (8) Bilateral pneumonia Current visit: Yes Status: Acute Qualifiers: Pneumonia type: due to methicillin-resistant Staphylococcus aureus (MRSA) Lung location: lower lobe of lung Qualified Code(s): J15.212 - Pneumonia due to Methicillin resistant Staphylococcus aureus Category: Medical Code(s): J18.9 - Pneumonia, unspecified organism (9) Anemia Current visit: No Status: Acute Qualifiers: Anemia type: due to chronic kidney disease Chronic kidney disease stage: stage 4 (severe) Qualified Code(s): N18.4 - Chronic kidney disease, stage 4 (severe); D63.1 - Anemia in chronic kidney disease Category: Medical Code(s): D64.9 - Anemia, unspecified (10) UTI (urinary tract infection) due to urinary indwelling Alexandre catheter Current visit: Yes Status: Chronic Qualifiers: Indwelling urinary catheter type: indwelling urethral catheter Encounter type: sequela Qualified Code(s): T83.511S - Infection and inflammatory reaction due to indwelling urethral catheter, sequela; N39.0 - Urinary tract infection, site not specified Category: Medical Code(s): T83.511A - Infection and inflammatory reaction due to indwelling urethral catheter, initial encounter; N39.0 - Urinary tract infection, site not specified (11) Acute on chronic respiratory failure with hypoxia Current visit: Yes Status: Acute Category: Medical Code(s): J96.21 - Acute and chronic respiratory failure with hypoxia (12) Pulmonary hypertension Current visit: Yes Status: Acute Category: Medical Code(s): I27.20 - Pulmonary hypertension, unspecified - Assessment and plan all Dx Assessment and Plan for all problems:: We will continue current IV antibiotics and antifungals. Awaiting placement to a longterm facility. Given patient poor prognosis, if he is not accepted to any of the longterm facility, patient will be sent home with home health on Wednesday with the family.
--- NOTE | 2018-01-29 12:14 | Progress Note ---
Internal Medicine - PN: Subj *Date: 01/29/18 *Time: 12:14 Exam Vital signs and Labs for Last 24 Hours: Temp Pulse Resp BP Pulse Ox 98 F 58 L 20 122/87 96 01/29/18 08:00 01/29/18 00:00 01/29/18 08:00 01/29/18 08:00 01/29/18 08:00 Laboratory Results - last 24 hr 01/29/18 06:50: WBC 8.6, RBC 3.25 L, Hgb 9.5 L, Hct 30.6 L, MCV 94.0, MCH 29.2, MCHC 31.1 L, RDW 19.1 H, Plt Count 233, MPV 8.1, Neut % (Auto) 78.0, Lymph % (Auto) 10.8, [place] % (Auto) 7.2, Eos % (Auto) 3.6, Baso % (Auto) 0.4, Neut # (Auto) 6.7, Lymph # (Auto) 0.9, [place] # (Auto) 0.6, Eos # (Auto) 0.3, Baso # (Auto) 0.0 01/29/18 06:50: Sodium 137, Potassium 4.4, Chloride 101, Carbon Dioxide 31, Anion Gap 9.4, BUN 52 H, Creatinine 1.98 H, Estimated Creat Clear 29, Estimated GFR 32 L, Est GFR ( Amer) 39 L, Glucose 131 H, Calcium 8.1 L, Total Bilirubin 0.2, AST 22, ALT 14, Alkaline Phosphatase 96, Total Protein 6.3 L, A lbumin 1.5 L, Globulin 4.8 H, Albumin/Globulin Ratio 0.3 L I & O for Last 24 hours: Intake & Output 01/26/18 01/27/18 01/28/18 01/29/18 23:59 23:59 23:59 23:59 Intake Total 3488 / 3488 1823 / 1823 4731 / 4731 688 / 688 Output Total 925 / 925 1650 / 1650 520 / 520 Balance 2563 / 2563 173 / 173 4211 / 4211 688 / 688 Weight 68.346 kg 69.967 kg 73.567 kg Assessment and Plan (1) Sepsis Start date: 01/21/18 Current visit: Yes Status: Acute Qualifiers: Sepsis type: methicillin resistant Staphylococcus aureus Qualified Code(s): A41.02 - Sepsis due to Methicillin resistant Staphylococcus aureus Category: Medical Code(s): A41.9 - Sepsis, unspecified organism (2) No CPR or defibrillation, use all other resuscitative measures Current visit: No Status: Acute Category: Medical Code(s): Z78.9 - Other specified health status (3) Scrotal edema Current visit: No Status: Acute Category: Medical Code(s): N50.89 - Other specified disorders of the male genital organs (4) Status post tracheostomy Current visit: No Status: Acute Category: Surgical Code(s): Z93.0 - Tracheostomy status (5) Renal insufficiency Problem details: Patient only has 1 kidney Current visit: No Status: Acute Category: Medical Code(s): N28.9 - Disorder of kidney and ureter, unspecified (6) Chronic atrial fibrillation Current visit: No Status: Acute Category: Medical Code(s): I48.2 - Chronic atrial fibrillation (7) On tube feeding diet Current visit: Yes Status: Acute Category: Medical Code(s): Z78.9 - Other specified health status (8) Bilateral pneumonia Current visit: Yes Status: Acute Qualifiers: Pneumonia type: due to methicillin-resistant Staphylococcus aureus (MRSA) Lung location: lower lobe of lung Qualified Code(s): J15.212 - Pneumonia due to Methicillin resistant Staphylococcus aureus Category: Medical Code(s): J18.9 - Pneumonia, unspecified organism (9) Anemia Current visit: No Status: Acute Qualifiers: Anemia type: due to chronic kidney disease Chronic kidney disease stage: stage 4 (severe) Qualified Code(s): N18.4 - Chronic kidney disease, stage 4 (severe); D63.1 - Anemia in chronic kidney disease Category: Medical Code(s): D64.9 - Anemia, unspecified (10) UTI (urinary tract infection) due to urinary indwelling Alexandre catheter Current visit: Yes Status: Chronic Qualifiers: Indwelling urinary catheter type: indwelling urethral catheter Encounter type: sequela Qualified Code(s): T83.511S - Infection and inflammatory reaction due to indwelling urethral catheter, sequela; N39.0 - Urinary tract infection, site not specified Category: Medical Code(s): T83.511A - Infection and inflammatory reaction due to indwelling urethral catheter, initial encounter; N39.0 - Urinary tract infection, site not specified (11) Acute on chronic respiratory failure with hypoxia Current visit: Yes Status: Acute Category: Medical Code(s): J96.21 - Acute and chronic respiratory failure with hypoxia (12) Pulmonary hypertension Current visit: Yes Status: Acute Category: Medical Code(s): I27.20 - Pulmonary hypertension, unspecified The patient's infection will respond to the chosen ABx?: Yes Is the patient receiving the right drug, dose, and route?: Yes Could a more targeted ABx be ordered?: No
[2018-01-30 07:53] LABS: Basophils % 0.4 % (0.1-2.0); Eosinophils # 0.3 K/mm3 (0.0-0.4); Eosinophils % 2.7 % (0.1-12.0); Hematocrit 30.1 % (42.0-52.0); Hemoglobin 9.5 g/dL (14.1-18.0); Lymphocytes % 9.6 % (10-50); Mean Corpuscular HGB Conc 31.7 g/dL (31.8-35.4); Mean Corpuscular Hemoglobin 29.8 pg (27.0-31.2); Mean Corpuscular Volume 93.9 fl (80-94); Mean Platelet Volume 8.5 fl (7.4-10.4); Monocytes # 0.7 K/mm3 (0.1-1.0); Monocytes % 6.6 % (1.7-9.3); Neutrophils # 8.4 K/mm3 (1.8-7.8); Neutrophils % 80.7 % (37.0-80.0); Platelet Count 228 K/mm3 (142-424); Red Blood Count 3.21 M/mm3 (4.60-6.20); White Blood Count 10.4 K/mm3 (4.8-10.8)
[2018-01-30 08:04] LABS: Albumin Level 1.6 gm/dL (3.4-5.0); Albumin/Globulin Ratio 0.3 (1.1-1.8); Anion Gap 6.7 mEq/L (5-15); Bilirubin,Total 0.2 mg/dL (0.2-1.0); Calcium 8.1 mg/dL (8.5-10.1); Globulin 4.9 gm/dl (1.3-3.2); Potassium 4.7 mmoL/L (3.5-5.1); Total Protein,Serum 6.5 gm/dL (6.4-8.2)
--- NOTE | 2018-01-30 10:24 | Progress Note ---
Internal Medicine - PN: Subj *Date: 01/30/18 *Time: 10:00 Interval history: Patient is stable with GCS of 4-5 today. He seemed to be in pain at times per nurses. He was also seemed to be in pain during the exam. He is not opening his eyes and not talking to me during exam today, he is not moving his extremities as well. Exam Vital signs and Labs for Last 24 Hours: Temp Pulse Resp BP Pulse Ox 97.6 F 59 L 18 136/59 L 96 01/30/18 08:00 01/30/18 08:00 01/30/18 08:00 01/30/18 08:00 01/30/18 08:00 Laboratory Results - last 24 hr 01/30/18 07:28: WBC 10.4, RBC 3.21 L, Hgb 9.5 L, Hct 30.1 L, MCV 93.9, MCH 29.8, MCHC 31.7 L, RDW 19.0 H, Plt Count 228, MPV 8.5, Neut % (Auto) 80.7 H, Lymph % (Auto) 9.6 L, [place] % (Auto) 6.6, Eos % (Auto) 2.7, Baso % (Auto) 0.4, Neut # (Auto) 8.4 H, Lymph # (Auto) 1.0, [place] # (Auto) 0.7, Eos # (Auto) 0.3, Baso # (Auto) 0.0 01/30/18 07:28: Sodium 135 L, Potassium 4.7, Chloride 101, Carbon Dioxide 32, Anion Gap 6.7, BUN 55 H, Creatinine 2.08 H, Estimated Creat Clear 28, Estimated GFR 31 L, Est GFR ( Amer) 37 L, Glucose 129 H, Calcium 8.1 L, Total Bilirubin 0.2, AST 22, ALT 13, Alkaline Phosphatase 94, Total Protein 6.5, Albumin 1.6 L, Globulin 4.9 H, Albumin/Globulin Ratio 0.3 L I & O for Last 24 hours: Intake & Output 01/27/18 01/28/18 01/29/18 01/30/18 11:59 11:59 11:59 11:59 Intake Total 4551 / 4551 2816 / 2816 3363 / 3363 1581 / 1581 Output Total 1475 / 1475 870 / 870 450 / 450 400 / 400 Balance 3076 / 3076 1946 / 1946 2913 / 2913 1181 / 1181 Weight 154 lb 4 oz 162 lb 3 oz 162 lb 9 oz - *Routine HEENT Exam Head: Present: normocephalic Eye: Absent: EOMI ENT: Present: mucous membranes dry - *Routine Neck Exam Present: supple (Tracheostomy tube in place) - *Routine Respiratory Exam Present: decreased breath sounds, crackles, distant breath sounds, diminished air movement - *Routine Cardiovascular Exam Present: RRR - *Routine Abdominal Exam Present: soft, distended (PEG tube in place). Absent: normoactive bowel sounds - *Routine Extremities Exam Present: edema (2+ pitting edema bilateral). Absent: full ROM - *Routine Skin Exam Present: intact, dry - *Routine Neurological Exam Absent: alert, oriented X3 - Routine Psychiatric Exam Present: unable to assess Assessment and Plan (1) Sepsis Start date: 01/21/18 Current visit: Yes Status: Acute Qualifiers: Sepsis type: methicillin resistant Staphylococcus aureus Qualified Code(s): A41.02 - Sepsis due to Methicillin resistant Staphylococcus aureus Category: Medical Code(s): A41.9 - Sepsis, unspecified organism (2) No CPR or defibrillation, use all other resuscitative measures Current visit: No Status: Acute Category: Medical Code(s): Z78.9 - Other specified health status (3) Scrotal edema Current visit: No Status: Acute Category: Medical Code(s): N50.89 - Other specified disorders of the male genital organs (4) Status post tracheostomy Current visit: No Status: Acute Category: Surgical Code(s): Z93.0 - Tracheostomy status (5) Renal insufficiency Problem details: Patient only has 1 kidney Current visit: No Status: Acute Category: Medical Code(s): N28.9 - Disorder of kidney and ureter, unspecified (6) Chronic atrial fibrillation Current visit: No Status: Acute Category: Medical Code(s): I48.2 - Chronic atrial fibrillation (7) On tube feeding diet Current visit: Yes Status: Acute Category: Medical Code(s): Z78.9 - Other specified health status (8) Bilateral pneumonia Current visit: Yes Status: Acute Qualifiers: Pneumonia type: due to methicillin-resistant Staphylococcus aureus (MRSA) Lung location: lower lobe of lung Qualified Code(s): J15.212 - Pneumonia due to Methicillin resistant Staphylococcus aureus Category: Medical Code(s): J18.9 - Pneumonia, unspecified organism (9) Anemia Current visit: No Status: Acute Qualifiers: Anemia type: due to chronic kidney disease Chronic kidney disease stage: stage 4 (severe) Qualified Code(s): N18.4 - Chronic kidney disease, stage 4 (severe); D63.1 - Anemia in chronic kidney disease Category: Medical Code(s): D64.9 - Anemia, unspecified (10) UTI (urinary tract infection) due to urinary indwelling Alexandre catheter Current visit: Yes Status: Chronic Qualifiers: Indwelling urinary catheter type: indwelling urethral catheter Encounter type: sequela Qualified Code(s): T83.511S - Infection and inflammatory reaction due to indwelling urethral catheter, sequela; N39.0 - Urinary tract infection, site not specified Category: Medical Code(s): T83.511A - Infection and inflammatory reaction due to indwelling urethral catheter, initial encounter; N39.0 - Urinary tract infection, site not specified (11) Acute on chronic respiratory failure with hypoxia Current visit: Yes Status: Acute Category: Medical Code(s): J96.21 - Acute and chronic respiratory failure with hypoxia (12) Pulmonary hypertension Current visit: Yes Status: Acute Category: Medical Code(s): I27.20 - Pulmonary hypertension, unspecified - Assessment and plan all Dx Assessment and Plan for all problems:: Continue IV antibiotics and antifungals. Will await for placement from [place]. If exhausted all resources for placement, will send patient home with home health tomorrow.
[2018-01-31 06:05] LABS: ABG HCO3 31.2 mmhg (22.0-26.0); ABG Oxygen Saturation 92 % (90-100); ABG PCO2 47.6 mmhg (35.0-45.0); ABG PH 7.44 mmol/L (7.35-7.45); ABG TCO2 32.7 mmhg (23-27)
[2018-01-31 07:54] LABS: Albumin Level 1.6 gm/dL (3.4-5.0); Albumin/Globulin Ratio 0.3 (1.1-1.8); Anion Gap 9.3 mEq/L (5-15); Bilirubin,Total 0.3 mg/dL (0.2-1.0); Calcium 8.1 mg/dL (8.5-10.1); Total Protein,Serum 6.6 gm/dL (6.4-8.2)
[2018-01-31 07:58] LABS: Basophils # 0.1 K/mm3 (0-0.2); Basophils % 0.6 % (0.1-2.0); Eosinophils # 0.2 K/mm3 (0.0-0.4); Hematocrit 31.8 % (42.0-52.0); Lymphocytes # 0.9 K/mm3 (0.7-4.5); Lymphocytes % 9.1 % (10-50); Mean Corpuscular HGB Conc 31.3 g/dL (31.8-35.4); Mean Corpuscular Hemoglobin 29.4 pg (27.0-31.2); Mean Platelet Volume 8.6 fl (7.4-10.4); Monocytes # 0.6 K/mm3 (0.1-1.0); Monocytes % 6.1 % (1.7-9.3); Neutrophils # 8.4 K/mm3 (1.8-7.8); Neutrophils % 82.2 % (37.0-80.0); Platelet Count 208 K/mm3 (142-424); Potassium 5.3 mmoL/L (3.5-5.1); Red Blood Count 3.39 M/mm3 (4.60-6.20); Red Cell Distribution Width 18.9 % (11.5-17.5); White Blood Count 10.2 K/mm3 (4.8-10.8)
--- NOTE | 2018-01-31 10:31 | Progress Note ---
Internal Medicine - PN: Subj *Date: 01/31/18 *Time: 08:45 Interval history: Patient is declining with GCS of 5, family at bedside, still wants everything done for him despite of his poor prognosis. Exam Vital signs and Labs for Last 24 Hours: Temp Pulse Resp BP Pulse Ox 98.0 F 56 L 20 130/54 L 94 L 01/31/18 08:00 01/31/18 08:00 01/31/18 08:00 01/31/18 08:00 01/31/18 08:00 Laboratory Results - last 24 hr 01/31/18 06:00: ABG pH 7.44, ABG pCO2 47.6 H, ABG pO2 62.0 L, ABG HCO3 31.2 H, ABG Total CO2 32.7 H, ABG O2 Saturation 92, ABG Base Excess 7.0 H 01/31/18 07:24: WBC 10.2, RBC 3.39 L, Hgb 10.0 L, Hct 31.8 L, MCV 94.0, MCH 29.4, MCHC 31.3 L, RDW 18.9 H, Plt Count 208, MPV 8.6, Neut % (Auto) 82.2 H, Lymph % (Auto) 9.1 L, [place] % (Auto) 6.1, Eos % (Auto) 2.0, Baso % (Auto) 0.6, Neut # (Auto) 8.4 H, Lymph # (Auto) 0.9, [place] # (Auto) 0.6, Eos # (Auto) 0.2, Baso # (Auto) 0.1 01/31/18 07:24: Sodium 136, Potassium 5.3 H, Chloride 99, Carbon Dioxide 33 H, Anion Gap 9.3, BUN 57 H, Creatinine 2.02 H, Estimated Creat Clear 28, Estimated GFR 32 L, Est GFR ( Amer) 38 L, Glucose 120 H, Calcium 8.1 L, Total Bilirubin 0.3, AST 35 D, ALT 14, Alkaline Phosphatase 95, Total Protein 6.6, Albumin 1.6 L, Globulin 5.0 H, Albumin/Globulin Ratio 0.3 L I & O for Last 24 hours: Intake & Output 01/28/18 01/29/18 01/30/18 01/31/18 11:59 11:59 11:59 11:59 Intake Total 2816 / 2816 3463 / 3463 1881 / 1881 2203 / 2203 Output Total 870 / 870 450 / 450 400 / 400 1100 / 1100 Balance 1946 / 1946 3013 / 3013 1481 / 1481 1103 / 1103 Weight 162 lb 3 oz 162 lb 9 oz 159 lb 6 oz - *Routine HEENT Exam Head: Present: normocephalic ENT: Present: mucous membranes dry - *Routine Neck Exam Present: supple Comments: tracheostomy tube in place - *Routine Respiratory Exam Present: crackles, distant breath sounds, diminished air movement - *Routine Cardiovascular Exam Present: RRR - *Routine Abdominal Exam Present: soft, distended - *Routine Extremities Exam Present: edema (2+ pitting bilateral edema) - *Routine Skin Exam Present: intact, dry - *Routine Neurological Exam Absent: alert, oriented X3 (GCS of 4-5) - Routine Psychiatric Exam Present: unable to assess Assessment and Plan (1) Sepsis Start date: 01/21/18 Current visit: Yes Status: Acute Qualifiers: Sepsis type: methicillin resistant Staphylococcus aureus Qualified Code(s): A41.02 - Sepsis due to Methicillin resistant Staphylococcus aureus Category: Medical Code(s): A41.9 - Sepsis, unspecified organism (2) No CPR or defibrillation, use all other resuscitative measures Current visit: No Status: Acute Category: Medical Code(s): Z78.9 - Other specified health status (3) Scrotal edema Current visit: No Status: Acute Category: Medical Code(s): N50.89 - Other specified disorders of the male genital organs (4) Status post tracheostomy Current visit: No Status: Acute Category: Surgical Code(s): Z93.0 - Tracheostomy status (5) Renal insufficiency Problem details: Patient only has 1 kidney Current visit: No Status: Acute Category: Medical Code(s): N28.9 - Disorder of kidney and ureter, unspecified (6) Chronic atrial fibrillation Current visit: No Status: Acute Category: Medical Code(s): I48.2 - Chronic atrial fibrillation (7) On tube feeding diet Current visit: Yes Status: Acute Category: Medical Code(s): Z78.9 - Other specified health status (8) Bilateral pneumonia Current visit: Yes Status: Acute Qualifiers: Pneumonia type: due to methicillin-resistant Staphylococcus aureus (MRSA) Lung location: lower lobe of lung Qualified Code(s): J15.212 - Pneumonia due to Methicillin resistant Staphylococcus aureus Category: Medical Code(s): J18.9 - Pneumonia, unspecified organism (9) Anemia Current visit: No Status: Acute Qualifiers: Anemia type: due to chronic kidney disease Chronic kidney disease stage: stage 4 (severe) Qualified Code(s): N18.4 - Chronic kidney disease, stage 4 (severe); D63.1 - Anemia in chronic kidney disease Category: Medical Code(s): D64.9 - Anemia, unspecified (10) UTI (urinary tract infection) due to urinary indwelling Alexandre catheter Current visit: Yes Status: Chronic Qualifiers: Indwelling urinary catheter type: indwelling urethral catheter Encounter type: sequela Qualified Code(s): T83.511S - Infection and inflammatory reac tion due to indwelling urethral catheter, sequela; N39.0 - Urinary tract infection, site not specified Category: Medical Code(s): T83.511A - Infection and inflammatory reaction due to indwelling urethral catheter, initial encounter; N39.0 - Urinary tract infection, site not specified (11) Acute on chronic respiratory failure with hypoxia Current visit: Yes Status: Acute Category: Medical Code(s): J96.21 - Acute and chronic respiratory failure with hypoxia (12) Pulmonary hypertension Current visit: Yes Status: Acute Category: Medical Code(s): I27.20 - Pulmonary hypertension, unspecified - Assessment and plan all Dx Assessment and Plan for all problems:: will contiue IV abx per family wishes. Patient can't verbalize what he wants to me as he is unresponsive. Will await to hear from [place]. If exhaust all resources, will send home with home health.
[2018-02-01 05:21] LABS: Albumin Level 1.6 gm/dL (3.4-5.0); Albumin/Globulin Ratio 0.3 (1.1-1.8); Anion Gap 9.8 mEq/L (5-15); Bilirubin,Total 0.3 mg/dL (0.2-1.0); Calcium 7.9 mg/dL (8.5-10.1); Globulin 4.7 gm/dl (1.3-3.2); Potassium 4.8 mmoL/L (3.5-5.1); Total Protein,Serum 6.3 gm/dL (6.4-8.2)
[2018-02-01 05:44] LABS: Basophils % 0.4 % (0.1-2.0); Eosinophils # 0.3 K/mm3 (0.0-0.4); Eosinophils % 2.7 % (0.1-12.0); Hematocrit 28.3 % (42.0-52.0); Lymphocytes % 9.7 % (10-50); Mean Corpuscular HGB Conc 31.3 g/dL (31.8-35.4); Mean Corpuscular Hemoglobin 29.2 pg (27.0-31.2); Mean Corpuscular Volume 93.2 fl (80-94); Mean Platelet Volume 8.1 fl (7.4-10.4); Monocytes # 0.5 K/mm3 (0.1-1.0); Monocytes % 5.5 % (1.7-9.3); Neutrophils % 81.7 % (37.0-80.0); Platelet Count 194 K/mm3 (142-424); Red Blood Count 3.03 M/mm3 (4.60-6.20); Red Cell Distribution Width 18.9 % (11.5-17.5); White Blood Count 9.8 K/mm3 (4.8-10.8)
[2018-02-01 06:03] LABS: ABG Base Excess 8.8 mmol/L (-2.4-2.3); ABG HCO3 32.3 mmhg (22.0-26.0); ABG Oxygen Saturation 92 % (90-100); ABG PCO2 44.7 mmhg (35.0-45.0); ABG PH 7.48 mmol/L (7.35-7.45); ABG PO2 59.4 mmhg (80-100); ABG TCO2 33.7 mmhg (23-27)
[2018-02-01 06:04] LABS: Allen's Test ACCEPTABLE; Oxygen 28% %
[2018-02-01 06:08] LABS: Hemoglobin 8.9 g/dL (14.1-18.0)
--- NOTE | 2018-02-01 08:10 | Progress Note ---
<Jennifer Moffett - Last Filed: 02/01/18 08:07> Internal Medicine - PN: Subj *Date: 02/01/18 *Time: 08:07 Interval history: Patient has had no change in his condition. He indicates that he is comfortable. Exam Vital signs and Labs for Last 24 Hours: Temp Pulse Resp BP Pulse Ox 97.9 F 74 18 135/54 L 94 L 01/31/18 23:36 01/31/18 23:36 01/31/18 23:36 01/31/18 23:36 01/31/18 23:36 Laboratory Results - last 24 hr 02/01/18 04:50: WBC 9.8, RBC 3.03 L, Hgb 8.9 L D, Hct 28.3 L, MCV 93.2, MCH 29.2, MCHC 31.3 L, RDW 18.9 H, Plt Count 194, MPV 8.1, Neut % (Auto) 81.7 H, Lymph % (Auto) 9.7 L, [place] % (Auto) 5.5, Eos % (Auto) 2.7, Baso % (Auto) 0.4, Neut # (Auto) 8.0 H, Lymph # (Auto) 1.0, [place] # (Auto) 0.5, Eos # (Auto) 0.3, Baso # (Auto) 0.0 02/01/18 04:50: Sodium 136, Potassium 4.8, Chloride 99, Carbon Dioxide 32, Anion Gap 9.8, BUN 59 H, Creatinine 2.17 H, Estimated Creat Clear 26, Estimated GFR 29 L, Est GFR ( Amer) 35 L, Glucose 119 H, Calcium 7.9 L, Total Bilirubin 0.3, AST 20 D, ALT 12, Alkaline Phosphatase 94, Total Protein 6.3 L, Albumin 1.6 L, Globulin 4.7 H, Albumin/Globulin Ratio 0.3 L 02/01/18 06:00: Specimen Source R radial, O2 % 28%, ABG pH 7.48 H, ABG pCO2 44.7, ABG pO2 59.4 L, ABG HCO3 32.3 H, ABG Total CO2 33.7 H, ABG O2 Saturation 92, ABG Base Excess 8.8 H, [place] Test Acceptable I & O for Last 24 hours: Intake & Output 1101/30/18 01/31/18 02/01/18 11:59 11:59 11:59 11:59 Intake Total 3463 / 3463 1881 / 1881 2603 / 2603 Output Total 450 / 450 400 / 400 1100 / 1100 705 / 705 Balance 3013 / 3013 1481 / 1481 1503 / 1503 -705 / -705 Weight 162 lb 3 oz 162 lb 9 oz 159 lb 6 oz - Constitutional no acute distress Comments: Awake and alert with eyes open - *Routine Respiratory Exam Comments: Bilateral rhonchi anteriorly - *Routine Cardiovascular Exam Present: RRR - *Routine Abdominal Exam Present: soft, normoactive bowel sounds. Absent: tenderness - *Routine Extremities Exam Absent: edema - *Routine Neurological Exam Present: alert Trying to talk. Speech is very soft and difficult to understand. Follows with his eyes. 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 Assessment and Plan (1) Sepsis Start date: 01/21/18 Current visit: Yes Status: Acute Qualifiers: Sepsis type: methicillin resistant Staphylococcus aureus Qualified Code(s): A41.02 - Sepsis due to Methicillin resistant Staphylococcus aureus Category: Medical Code(s): A41.9 - Sepsis, unspecified organism (2) No CPR or defibrillation, use all other resuscitative measures Current visit: No Status: Acute Category: Medical Code(s): Z78.9 - Other specified health status (3) Scrotal edema Current visit: No Status: Acute Category: Medical Code(s): N50.89 - Other specified disorders of the male genital organs (4) Status post tracheostomy Current visit: No Status: Acute Category: Surgical Code(s): Z93.0 - Tracheostomy status (5) Renal insufficiency Problem details: Patient only has 1 kidney Current visit: No Status: Acute Category: Medical Code(s): N28.9 - Disorder of kidney and ureter, unspecified (6) Chronic atrial fibrillation Current visit: No Status: Acute Category: Medical Code(s): I48.2 - Chronic atrial fibrillation (7) On tube feeding diet Current visit: Yes Status: Acute Category: Medical Code(s): Z78.9 - Other specified health status (8) Bilateral pneumonia Current visit: Yes Status: Acute Qualifiers: Pneumonia type: due to methicillin-resistant Staphylococcus aureus (MRSA) Lung location: lower lobe of lung Qualified Code(s): J15.212 - Pneumonia due to Methicillin resistant Staphylococcus aureus Category: Medical Code(s): J18.9 - Pneumonia, unspecified organism (9) Anemia Current visit: No Status: Acute Qualifiers: Anemia type: due to chronic kidney disease Chronic kidney disease stage: stage 4 (severe) Qualified Code(s): N18.4 - Chronic kidney disease, stage 4 (severe); D63.1 - Anemia in chronic kidney disease Category: Medical Code(s): D64.9 - Anemia, unspecified (10) UTI (urinary tract infection) due to urinary indwelling Alexandre catheter Current visit: Yes Status: Chronic Qualifiers: Indwelling urinary catheter type: indwelling urethral catheter Encounter type: sequela Qualified Code(s): T83.511S - Infection and inflammatory reaction due to indwelling urethral catheter, sequela; N39.0 - Urinary tract infection, site not specified Category: Medical Code(s): T83.511A - Infection and inflammatory reaction due to indwelling urethral catheter, initial encounter; N39.0 - Urinary tract infection, site not specified (11) Acute on chronic respiratory failure with hypoxia Current visit: Yes Status: Acute Category: Medical Code(s): J96.21 - Acute and chronic respiratory failure with hypoxia (12) Pulmonary hypertension Current visit: Yes Status: Acute Category: Medical Code(s): I27.20 - Pulmonary hypertension, unspecified - Assessment and plan all Dx Assessment and Plan for all problems:: Plan is for patient to go home today with home health for ongoing care and IV antibiotic treatments. <Jill Guzman - Last Filed: 02/01/18 09:07> Exam Vital signs and Labs for Last 24 Hours: Temp Pulse Resp BP Pulse Ox 97.9 F 74 18 135/54 L 94 L 01/31/18 23:36 01/31/18 23:36 01/31/18 23:36 01/31/18 23:36 01/31/18 23:36 Laboratory Results - last 24 hr 02/01/18 04:50: WBC 9.8, RBC 3.03 L, Hgb 8.9 L D, Hct 28.3 L, MCV 93.2, MCH 29.2, MCHC 31.3 L, RDW 18.9 H, Plt Count 194, MPV 8.1, Neut % (Auto) 81.7 H, Lymph % (Auto) 9.7 L, [place] % (Auto) 5.5, Eos % (Auto) 2.7, Baso % (Auto) 0.4, Neut # (Auto) 8.0 H, Lymph # (Auto) 1.0, [place] # (Auto) 0.5, Eos # (Auto) 0.3, Baso # (Auto) 0.0 02/01/18 04:50: Sodium 136, Potassium 4.8, Chloride 99, Carbon Dioxide 32, Anion Gap 9.8, BUN 59 H, Creatinine 2.17 H, Estimated Creat Clear 26, Estimated GFR 29 L, Est GFR ( Amer) 35 L, Glucose 119 H, Calcium 7.9 L, Total Bilirubin 0.3, AST 20 D, ALT 12, Alkaline Phosphatase 94, Total Protein 6.3 L, Albumin 1.6 L, Globulin 4.7 H, Albumin/Globulin Ratio 0.3 L 02/01/18 06:00: Specimen Source R radial, O2 % 28%, ABG pH 7.48 H, ABG pCO2 44.7, ABG pO2 59.4 L, ABG HCO3 32.3 H, ABG Total CO2 33.7 H, ABG O2 Saturation 92, ABG Base Excess 8.8 H, [place] Test Acceptable I & O for Last 24 hours: Intake & Output 01/29/18 01/30/18 01/31/18 02/01/18 11:59 11:59 11:59 11:59 Intake Total 3463 / 3463 1881 / 1881 2603 / 2603 Output Total 450 / 450 400 / 400 1100 / 1100 705 / 705 Balance 3013 / 3013 1481 / 1481 1503 / 1503 -705 / -705 Weight 162 lb 3 oz 162 lb 9 oz 159 lb 6 oz Assessment and Plan (1) Sepsis Start date: 01/21/18 Current visit: Yes Status: Acute Qualifiers: Sepsis type: methicillin resistant Staphylococcus aureus Qualified Code(s): A41.02 - Sepsis due to Methicillin resistant Staphylococcus aureus Category: Medical Code(s): A41.9 - Sepsis, unspecified organism (2) No CPR or defibrillation, use all other resuscitative measures Current visit: No Status: Acute Category: Medical Code(s): Z78.9 - Other specified health status (3) Scrotal edema Current visit: No Status: Acute Category: Medical Code(s): N50.89 - Other specified disorders of the male genital organs (4) Status post tracheostomy Current visit: No Status: Acute Category: Surgical Code(s): Z93.0 - Tracheostomy status (5) Renal insufficiency Problem details: Patient only has 1 kidney Current visit: No Status: Acute Category: Medical Code(s): N28.9 - Disorder of kidney and ureter, unspecified (6) Chronic atrial fibrillation Current visit: No Status: Acute Category: Medical Code(s): I48.2 - Chronic atrial fibrillation (7) On tube feeding diet Current visit: Yes Status: Acute Category: Medical Code(s): Z78.9 - Other specified health status (8) Bilateral pneumonia Current visit: Yes Status: Acute Qualifiers: Pneumonia type: due to methicillin-resistant Staphylococcus aureus (MRSA) Lung location: lower lobe of lung Qualified Code(s): J15.212 - Pneumonia due to Methicillin resistant Staphylococcus aureus Category: Medical Code(s): J18.9 - Pneumonia, unspecified organism (9) Anemia Current visit: No Status: Acute Qualifiers: Anemia type: due to chronic kidney disease Chronic kidney disease stage: stage 4 (severe) Qualified Code(s): N18.4 - Chronic kidney disease, stage 4 (severe); D63.1 - Anemia in chronic kidney disease Category: Medical Code(s): D64.9 - Anemia, unspecified (10) UTI (urinary tract infection) due to urinary indwelling Alexandre catheter Current visit: Yes Status: Chronic Qualifiers: Indwelling urinary catheter type: indwelling urethral catheter Encounter type: sequela Qualified Code(s): T83.511S - Infection and inflammatory reaction due to indwelling urethral catheter, sequela; N39.0 - Urinary tract infection, site not specified Category: Medical Code(s): T83.511A - Infection and inflammatory reaction due to indwelling urethral catheter, initial encounter; N39.0 - Urinary tract infection, site not specified (11) Acute on chronic respiratory failure with hypoxia Current visit: Yes Status: Acute Category: Medical Code(s): J96.21 - Acute and chronic respiratory failure with hypoxia (12) Pulmonary hypertension Current visit: Yes Status: Acute Category: Medical Code(s): I27.20 - Pulmonary hypertension, unspecified - Assessment and plan all Dx Assessment and Plan for all problems:: Agree with above, continue IV abx and lasix.
--- NOTE | 2018-02-01 10:08 | Discharge Summary ---
General - General Admission date:: 01/21/18 Discharge date: 02/01/18 HPI HPI: History obtained from patient's 2 daughters, who are his caretakers at home. Patient was brought in by ambulance with a chief complaint of fluid in and around his lungs. Daughter stated that for the several days prior to admission he had a hoarse voice followed by some yellowish drainage down the back of his throat and a cough. He had been started on Zithromax the previous day. He had a visiting physician. He had a chest x-ray done which showed fluid in and around his lung. He had no fever at home or vomiting. He chronically had diarrhea due to tube feedings. No recent change in hs stools. The swelling in his legs was actually decreased compared to his typical. He always had swelling, right lower extremity greater than left and hyperpigmentation of his right leg consistent with venous stasis. He had been using oxygen via tracheostomy at night since discharge from rehab, but now was using it all day long at 4 L for the past few days because of the change in respiratory status. He had significant recent past history. He was admitted to [facility] for urinary tract infection and it sounded as if he suffered several respiratory arrests or respiratory failure episodes. He eventually had a tracheostomy and a gastrostomy tube. He was sent to [facility] for rehabilitation for a month. He had been home for 2 months with his daughters caring for him. He had subsequently been readmitted to [facility], transferred from this emergency department, for a gastrointestinal bleed with severe anemia. Hospital Course Hospital Course: Upon admission pt was started on IVF and then discontinued due CHF. He was started on triple ABX therapy for cystitis, pneumonia, and infection at the GT site. Family was made aware of patient's poor prognosis upon admission. 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 Patient's response throughout his admission was vague and ranged from opening his eyes and trying to speak to unresponsiveness. Antibiotics were changed according to cultures and sensitivities. He did receinve PRBC's. The family was updated on the seriousness of the patient's condition and continued to want aggressive treatment. Care management was consulted for disposition. Pt did have copious secretions and required aggressive pulmonary hygiene. Tube feedings were continued. ABX and antifungals were continued. [facility] rejected his admission and he was then accepted at [facility] in [place]. AT this point the family decided that they would take him home with the assistance of [facility] for his care. [facility] was to provide the ABX. On 02/01/18 patient was stable and discharged to his family home. See discharge orders. Objective Vital signs: Temp Pulse Resp BP Pulse Ox 97.9 F 74 18 135/54 L 94 L 01/31/18 23:36 01/31/18 23:36 01/31/18 23:36 01/31/18 23:36 01/31/18 23:36 Narrative: Vital signs and Labs for Last 24 Hours: Temp Pulse Resp BP Pulse Ox 97.9 F 74 18 135/54 L 94 L 01/31/18 23:36 01/31/18 23:36 01/31/18 23:36 01/31/18 23:36 01/31/18 23:36 Laboratory Results - last 24 hr 02/01/18 04:50: WBC 9.8, RBC 3.03 L, Hgb 8.9 L D, Hct 28.3 L, MCV 93.2, MCH 29.2, MCHC 31.3 L, RDW 18.9 H, Plt Count 194, MPV 8.1, Neut % (Auto) 81.7 H, Lymph % (Auto) 9.7 L, Cassia % (Auto) 5.5, Eos % (Auto) 2.7, Baso % (Auto) 0.4, Neut # (Auto) 8.0 H, Lymph # (Auto) 1.0, Cassia # (Auto) 0.5, Eos # (Auto) 0.3, Baso # (Auto) 0.0 02/01/18 04:50: Sodium 136, Potassium 4.8, Chloride 99, Carbon Dioxide 32, Anion Gap 9.8, BUN 59 H, Creatinine 2.17 H, Estimated Creat Clear 26, Estimated GFR 29 L, Est GFR ( Amer) 35 L, Glucose 119 H, Calcium 7.9 L, Total Bilirubin 0.3, AST 20 D, ALT 12, Alkaline Phosphatase 94, Total Protein 6.3 L, Albumin 1.6 L, Globulin 4.7 H, Albumin/Globulin Ratio 0.3 L 02/01/18 06:00: Specimen Source R radial, O2 % 28%, ABG pH 7.48 H, ABG pCO2 44.7, ABG pO2 59.4 L, ABG HCO3 32.3 H, ABG Total CO2 33.7 H, ABG O2 Saturation 92, ABG Base Excess 8.8 H, [place] Test Acceptable I & O for Last 24 hours: Intake & Output 01/29/18 01/30/18 01/31/18 02/01/18 11:59 11:59 11:59 11:59 Intake Total 3463 / 3463 1881 / 1881 2603 / 2603 Output Total 450 / 450 400 / 400 1100 / 1100 705 / 705 Balance 3013 / 3013 1481 / 1481 1503 / 1503 -705 / -705 Weight 162 lb 3 oz 162 lb 9 oz 159 lb 6 oz - Constitutional no acute distress Comments: Awake and alert with eyes open - *Routine Respiratory Exam Comments: Bilateral rhonchi anteriorly - *Routine Cardiovascular Exam Present: RRR - *Routine Abdominal Exam Present: soft, normoactive bowel sounds. Absent: tenderness - *Routine Extremities Exam Absent: edema - *Routine Neurological Exam Present: alert Trying to talk. Speech is very soft and difficult to understand. Follows with his eyes. 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 Results Completed studies during hospitalization [Text1]: 01/21/18CXR IMPRESSION: Cardiomegaly with bilateral pneumonia and small right effusion with tracheostomy tube present 01/22/18CXR IMPRESSION: Bilateral pneumonia with right effusion with cardiomegaly and mild CHF. The effusion on the right is slightly larger and the CHF has developed since the previous exam 01/22/18 US of scrotum IMPRESSION: Extensive scrotal edema Unremarkable appearing testicles 01/24/18 ECHO CONCLUSION: 1. Moderate biatrial enlargement, normal left ventricular size, mild concentric left ventricular hypertrophy, hyperdynamic left ventricular systolic function, visually estimated ejection fraction over 65% with no regional wall motion abnormality, diastolic parameters are inconclusive. 2. Mild mitral and severe tricuspid regurgitation, calculated right ventricular systolic pressure is 56 mmHg consistent with moderate pulmonary hypertension. 3. No significant pericardial effusion noted. 01/25/18 CXR IMPRESSION: PICC line tip is in region of the right atrium. Bilateral pneumonia with right effusion and cardiomegaly Labs on day of discharge: Labs from last 24 hours 02/01/18 02/01/18 02/01/18 06:00 04:50 04:50 WBC 9.8 RBC 3.03 L Hgb 8.9 L D Hct 28.3 L MCV 93.2 MCH 29.2 MCHC 31.3 L RDW 18.9 H Plt Count 194 MPV 8.1 Neut % (Auto) 81.7 H Lymph % (Auto) 9.7 L Cassia % (Auto) 5.5 Eos % (Auto) 2.7 Baso % (Auto) 0.4 Neut # (Auto) 8.0 H Lymph # (Auto) 1.0 Cassia # (Auto) 0.5 Eos # (Auto) 0.3 Baso # (Auto) 0.0 Specimen Source R radial O2 % 28% ABG pH 7.48 H ABG pCO2 44.7 ABG pO2 59.4 L ABG HCO3 32.3 H ABG Total CO2 33.7 H ABG O2 Saturation 92 ABG Base Excess 8.8 H [place] Test Acceptable Sodium 136 Potassium 4.8 Chloride 99 Carbon Dioxide 32 Anion Gap 9.8 BUN 59 H Creatinine 2.17 H Estimated Creat Clear 26 Estimated GFR 29 L Est GFR ( Amer) 35 L Glucose 119 H Calcium 7.9 L Total Bilirubin 0.3 AST 20 D ALT 12 Alkaline Phosphatase 94 Total Protein 6.3 L Albumin 1.6 L Globulin 4.7 H Albumin/Globulin Ratio 0.3 L DS: Diagnosis - Discharge Diagnosis (1) Sepsis Status: Acute (2) No CPR or defibrillation, use all other resuscitative measures Status: Acute (3) Scrotal edema Status: Acute (4) Status post tracheostomy Status: Acute (5) Renal insufficiency Status: Acute Problem details: Patient only has 1 kidney (6) Chronic atrial fibrillation Status: Acute (7) On tube feeding diet Status: Acute (8) Bilateral pneumonia Status: Acute (9) Anemia Status: Acute (10) UTI (urinary tract infection) due to urinary indwelling Alexandre catheter Status: Chronic (11) Acute on chronic respiratory failure with hypoxia Status: Acute (12) Pulmonary hypertension Status: Acute Discharge Plan - Patient Discharge Instructions ACTIVITY: Continue current activity DIET: continue same diet Patient Instructions: How to Care for Your PEG Tube, How to Take Care of a Tracheostomy, Atrial Fibrillation, Methicillin-Resistant Staph Infection, Anemia, DI for Pneumonia -- Adult, Vancomycin-Resistant Enterococci Infection, DI for Urinary Tract Infection (UTI), 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 - Follow up Plan Disposition: Home Health Service Home Medications: Home Medications Medication Instructions Recorded Confirmed Type Acetaminophen [Tylenol] 500 mg PO HS 12/22/17 01/22/18 History Amlodipine Besylate [Amlodipine 10 mg PO DAILY 12/22/17 01/21/18 History 10mg Tab] Argin/Glut/Cahmb/Collag/Mv-Min 1 each PO DAILY 12/22/17 01/21/18 History [Son Packet] Folic Acid [Folic Acid 1mg tablet] 1 mg PO DAILY 12/22/17 01/21/18 History L.acidoph,Paracasei, B.lactis 1 each PO BID 12/22/17 01/22/18 History [Probiotic] Melatonin [Melatin] 3 mg PO HS 12/22/17 01/22/18 History Metoprolol Tartrate 50 mg PO BID 01/21/18 01/21/18 History Omeprazole [Omeprazole 40mg 40 mg PO BID 01/21/18 01/21/18 History Capsule] Docusate Sodium 2.5 ml PO DAILY 01/22/18 01/22/18 History Furosemide [Lasix 40mg tablet] 40 mg PO BID 01/22/18 01/22/18 History Multivit with Iron,Minerals 1 each PO DAILY 01/22/18 01/22/18 History [Spectravite Senior] Prescriptions/Medication Reconciliation: New Fluconazole [Diflucan 200mg tablet] 200 mg PO DAILY #10 tab Furosemide [Lasix 40mg/4mL vial] 40 mg IJ BID 10 Days vial Nystatin [Nystatin Susp 500,000 Units/5mL Udc] 500,000 unit PO QID #14 udc Levofloxacin/D5w [Levaquin 500mg/100mL Premix IVPB] 500 mg IV 1100 piggyback Linezolid [Zyvox 600mg/300mL Premix Bag] 600 mg IV Q12H iv.soln Continue Amlodipine Besylate [Amlodipine 10mg Tab] 10 mg PO DAILY Melatonin [Melatin] 3 mg PO HS L.acidoph,Paracasei, B.lactis [Probiotic] 1 each PO BID Folic Acid [Folic Acid 1mg tablet] 1 mg PO DAILY Acetaminophen [Tylenol] 500 mg PO HS Omeprazole [Omeprazole 40mg Capsule] 40 mg PO BID Metoprolol Tartrate 50 mg PO BID Multivit with Iron,Minerals [Spectravite Senior] 1 each PO DAILY Docusate Sodium 2.5 ml PO DAILY Argin/Glut/Cahmb/Collag/Mv-Min [Son Packet] 1 each PO DAILY Furosemide [Lasix 40mg tablet] 40 mg PO BID
[2018-02-01 12:27] VITALS: BP 111/53
== END 2018-02-01 13:55 | disposition home health service (06) ==
LOC: ER 14:08 → 2ND 14:08 → ER 14:30 → OBSVTOIN 17:05 → 2ND 17:06
PROVIDERS: ADMIT Emergency Medicine; ATTEND Emergency Medicine